=== PATIENT | male | born 1955 | race Caucasian/White ===

== ENCOUNTER 2017-03-10 10:13 | Emergency (ER) | payer OTHER ==
[2017-03-10] MEDS ORDERED: ADENOSINE 6 MG/2 ML VIAL ONE (10:17)
[2017-03-10 10:22] VITALS: RESP 16
[2017-03-10] MEDS ORDERED: NS 1,000 ML IV ONE ×2 (10:23→10:29)
[2017-03-10] MEDS ORDERED: ADENOSINE 6 MG/2 ML VIAL IVP ONE (10:24)
--- NOTE | 2017-03-10 10:25 | CPEKG ---
Heart Rate: 157 RR Interval: 382 QRSD Interval: 86 QT Interval: 300 QTC Interval: 485 P [place]: 0 QRS [place]: -46 T Wave [place]: 45 EKG Severity - ABNORMAL ECG - EKG Impression: SUPRAVENTRICULAR TACHYCARDIA Electronically Signed By: Tima Villalpando 10-Mar-2017 10:35:51
--- NOTE | 2017-03-10 10:28 | CPEKG ---
Heart Rate: 108 RR Interval: 556 P-R Interval: 188 QRSD Interval: 90 QT Interval: 328 QTC Interval: 440 P [place]: 63 QRS [place]: -41 T Wave [place]: 53 EKG Severity - OTHERWISE NORMAL ECG - EKG Impression: SINUS TACHYCARDIA EKG Impression: LEFT AXIS DEVIATION Electronically Signed By: Tima Villalpando 10-Mar-2017 10:36:09
--- NOTE | 2017-03-10 10:32 | EDPHY ---
H & P Stated Complaint: SVT Time Seen by Provider: 03/10/17 10:13 HPI/ROS: CHIEF COMPLAINT: Palpitations, dyspnea HISTORY OF PRESENT ILLNESS: The patient presents to the ED after he developed palpitations and dyspnea while riding his bike. The patient contacted paramedics. He was noted to be in a narrow complex tachycardia with a heart rate in the 150 range. The patient did not receive pre-hospital adenosine. The patient denies prior history of the symptoms. He reports a remote history of PVCs in his 40s. Patient denies significant past medical history. He takes no medications. He denies recent surgery. He denies pleuritic chest pain. He denies asymmetric calf pain or swelling. The patient denies history of recent illness. The patient states that his symptoms of palpitations and dyspnea are mild to moderate in nature. REVIEW OF SYSTEMS: A comprehensive 10 point review of systems is otherwise negative aside from elements mentioned in the history of present illness. Source: Patient Exam Limitations: No limitations - Personal History Current Tetanus/Diphtheria Vaccine: Unsure Current Tetanus Diphtheria and Acellular Pertussis (TDAP): Unsure - Medical/Surgical History Hx Asthma: No Hx Chronic Respiratory Disease: No Hx Diabetes: No Hx Cardiac Disease: No Hx Renal Disease: No Hx Cirrhosis: No Hx Alcoholism: No Hx HIV/AIDS: No Hx Splenectomy or Spleen Trauma: No Other PMH: PVCs - Social History Smoking Status: Never smoked - Physical Exam Exam: General Appearance: Alert, no distress Eyes: Pupils equal and round no pallor or injection ENT, Mouth: Mucous membranes moist Respiratory: There are no retractions, lungs are clear to auscultation Cardiovascular: Tachycardia, rate 150 Gastrointestinal: Abdomen is soft and nontender, no masses, bowel sounds normal Neurological: A&O, normal motor function, normal sensory exam, normal cranial nerves Skin: Warm and dry, no rashes Musculoskeletal: Neck is supple nontender Extremities: symmetrical, full range of motion Constitutional: Initial Vital Signs Temperature (C) 36.9 C 03/10/17 10:17 Heart Rate 160 H 03/10/17 10:17 Respiratory Rate 16 03/10/17 10:17 Blood Pressure 87/68 L 03/10/17 10:17 O2 Sat (%) 97 03/10/17 10:17 Allergies/Adverse Reactions: Cephalosporins Allergy (Verified 12/22/10 11:54) Home Medications: Medication Instructions Recorded Aspirin [Aspirin 81mg] 81 mg PO DAILY 12/22/10 Medical Decision Making - Diagnostics EKG Interpretation: EKG#1: Complete interpretation has been separately recorded in the [facility] archive. Summary impression: SVT, rate 157, no ST segment elevation EKG #2 (post-conversion): Complete interpretation has been separately recorded in the [facility] archive. Summary impression: Sinus rhythm, rate 108, no ST elevation or depression Imaging Results: Imaging Impressions Chest X-Ray 03/10/17 10:30 Impression: Negative portable chest. Procedures: Procedure: Chemical cardioversion. Indication: dysrhythmia. Risks, benefits, alternatives discussed with the patient and consent obtained. The patient was on a continuous personal lines agent, with airway equipment at the bedside. The patient was on continuous pulse oximetry. The cardioversion was performed with 12 mg of IV adenosine. The cardioversion was successful. The patient tolerated the procedure well with no complications. The procedure was performed by myself. ED Course/Re-evaluation: The patient presents to the ED with SVT. His initial rate was approximately 160. The patient was noted to be mildly hypotensive upon arrival with a blood pressure of 86/60. The patient did received 12 mg of IV adenosine which converted him to a sinus rhythm with a rate of 108. No ischemic changes are noted on his pre or post conversion EKG. The patient had marked improvement of his blood pressure following chemical cardioversion. The patient was kept in the emergency department for an hour and half without evidence of recurrent arrhythmia. He is up and ambulatory with no complaints of chest pain or shortness of breath. The patient will be advised to follow up with our on-call frozen meat cutter for further evaluation. He is instructed to return to the ED for recurrent arrhythmia, chest pain, difficulty breathing or other concerns. Differential Diagnosis: Differential diagnosis considered includes SVT, atrial fibrillation, atrial flutter, ventricular tachycardia, metabolic abnormality, dehydration Critical Care Time: Critical care time exclusive of procedures and exclusive of the PA's time was 30 minutes, performed by myself, Tima Villalpando MD. The patient presents to the ED with tachycardia and hypotension. The patient required emergent chemical cardioversion of his SVT. The patient was observed closely in the emergency department and received IV fluid rehydration. - Data Points Laboratory Results: Laboratory Results 03/10/17 10:24 03/10/17 10:24 03/10/17 03/10/17 10:24 10:24 WBC 6.01 10^3/uL 10^3/uL (3.80-9.50) RBC 4.62 10^6/uL 10^6/uL (4.40-6.38) Hgb 14.2 g/dL g/dL (13.7-17.5) Hct 41.1 % % (40.0-51.0) MCV 89.0 fL fL (81.5-99.8) MCH 30.7 pg pg (27.9-34.1) MCHC 34.5 g/dL g/dL (32.4-36.7) RDW 12.5 % % (11.5-15.2) Plt Count 241 10^3/uL 10^3/uL (150-400) MPV 10.3 fL fL (8.7-11.7) Neut % (Auto) 65.9 % % (39.3-74.2) Lymph % (Auto) 23.5 % % (15.0-45.0) [place] % (Auto) 8.5 % % (4.5-13.0) Eos % (Auto) 1.0 % % (0.6-7.6) Baso % (Auto) 0.8 % % (0.3-1.7) Nucleat RBC Rel Count 0.0 % % (0.0-0.2) Absolute Neuts (auto) 3.96 10^3/uL 10^3/uL (1.70-6.50) Absolute Lymphs (auto) 1.41 10^3/uL 10^3/uL (1.00-3.00) Absolute Monos (auto) 0.51 10^3/uL 10^3/uL (0.30-0.80) Absolute Eos (auto) 0.06 10^3/uL 10^3/uL (0.03-0.40) Absolute Basos (auto) 0.05 10^3/uL 10^3/uL (0.02-0.10) Absolute Nucleated RBC 0.00 10^3/uL 10^3/uL (0-0.01) Immature Gran % 0.3 % % (0.0-1.1) Immature Gran # 0.02 10^3/uL 10^3/uL (0.00-0.10) Sodium 140 mEq/L mEq/L (134-144) Potassium 3.8 mEq/L mEq/L (3.5-5.2) Chloride 109 mEq/L mEq/L (97-110) Carbon Dioxide 19 mEq/l L mEq/l (22-31) Anion Gap 12 mEq/L mEq/L (8-16) BUN 11 mg/dL mg/dL (7-23) Creatinine 1.0 mg/dL mg/dL (0.7-1.3) Estimated GFR > 60 Glucose 125 mg/dL H mg/dL (70-100) Calcium 8.8 mg/dL mg/dL (8.5-10.4) Magnesium 1.9 mg/dL mg/dL (1.6-2.3) Troponin I < 0.012 ng/mL ng/mL (0-0.034) Medications Given: Discontinued Medications Adenosine (Adenosine) 12 mg IVP EDNOW ONE Stop: 03/10/17 10:25 Last Admin: 03/10/17 10:25 Dose: 12 mg Sodium Chloride (Ns) 1,000 mls @ 0 mls/hr IV ONCE ONE PRN Reason: Wide Open Stop: 03/10/17 10:24 Last Admin: 03/10/17 10:25 Dose: 1,000 mls Sodium Chloride (Ns) 1,000 mls @ 0 mls/hr IV ONCE ONE; Wide Open PRN Reason: Protocol Stop: 03/10/17 10:30 Last Admin: 03/10/17 10:33 Dose: 1,000 mls Departure - Departure Disposition: Home, Routine, Self-Care Clinical Impression: Supraventricular tachycardia Condition: Good Instructions: Supraventricular Tachycardia (ED) Additional Instructions: 1. Please return to the ED for any recurrent palpitations, chest pain, shortness of breath or other concerns. 2. Please schedule a follow-up appointment with Dr. Castellanos from Cardiology for further evaluation of your newly diagnosed supraventricular tachycardia. Referrals: Keven Castellanos MD [Medical Doctor] - As per Instructions
[2017-03-10 10:35] LABS: % IMMATURE GRANULYOCYTES 0.3 % (0.0-1.1); ABSOLUTE IMMATURE GRANULOCYTES 0.02 10^3/uL (0.00-0.10); ADD DIFF? NO; ADD MORPH? NO; ADD SCAN? NO; ATYPICAL LYMPHOCYTE FLAG 10 (0-99); FRAGMENT RBC FLAG 0 (0-99); HEMATOCRIT 41.1 % (40.0-51.0); HEMOGLOBIN 14.2 g/dL (13.7-17.5); LEFT SHIFT FLG 0 (0-99); LIPEMIA HEMOLYSIS FLAG 90 (0-99); MEAN CELL HEMOGLOBIN 30.7 pg (27.9-34.1); MEAN CELL HEMOGLOBIN CONCENTR. 34.5 g/dL (32.4-36.7); MEAN PLATELET VOLUME 10.3 fL (8.7-11.7); PLATELET CLUMPS FLAG 0 (0-99); PLATELET COUNT 241 10^3/uL (150-400); RED BLOOD CELL COUNT 4.62 10^6/uL (4.40-6.38); RED CELL DISTRIBUTION WIDTH 12.5 % (11.5-15.2)
[2017-03-10 11:01] LABS: ANION GAP 12 mEq/L (8-16); CALCIUM 8.8 mg/dL (8.5-10.4); CARBON DIOXIDE 19 mEq/l (22-31); CHLORIDE 109 mEq/L (97-110); GLOMERULAR FILTRATION RATE > 60; GLUCOSE 125 mg/dL (70-100); MAGNESIUM 1.9 mg/dL (1.6-2.3); POTASSIUM 3.8 mEq/L (3.5-5.2); SODIUM 140 mEq/L (134-144)
[2017-03-10 11:13] LABS: TROPONIN I < 0.012 ng/mL (0-0.034)
[2017-03-10 12:08] VITALS: BP 108/72; PULSE 91
[2017-03-10 12:09] VITALS: TEMP 97.9; O2SAT 94
== END 2017-03-10 12:14 | disposition home or self-care (01) ==
LOC: EDUNIT#
DX: I47.1 Supraventricular tachycardia (principal)
CPT/HCPCS: 96374; J0153

== ENCOUNTER 2017-03-14 19:36 | Observation (INO) | payer OTHER ==
--- NOTE | 2017-03-14 19:51 | CPEKG ---
Heart Rate: 77 RR Interval: 779 P-R Interval: 172 QRSD Interval: 84 QT Interval: 388 QTC Interval: 440 P [place]: 54 QRS [place]: -37 T Wave [place]: 31 EKG Severity - OTHERWISE NORMAL ECG - EKG Impression: SINUS RHYTHM EKG Impression: LEFT AXIS DEVIATION Electronically Signed By: Dev Frederick 14-Mar-2017 20:11:18
[2017-03-14] MEDS ORDERED: ASPIRIN 81 MG CHEWABLE TAB PO ONE (19:54)
[2017-03-14] MEDS ORDERED: NITROGLYCERIN 0.4 MG BTL SL PRN ×2 (19:54→21:10)
[2017-03-14 20:02] LABS: % IMMATURE GRANULYOCYTES 0.3 % (0.0-1.1); ABSOLUTE IMMATURE GRANULOCYTES 0.02 10^3/uL (0.00-0.10); ADD DIFF? NO; ADD MORPH? NO; ADD SCAN? NO; ATYPICAL LYMPHOCYTE FLAG 0 (0-99); FRAGMENT RBC FLAG 0 (0-99); HEMATOCRIT 43.5 % (40.0-51.0); LEFT SHIFT FLG 0 (0-99); LIPEMIA HEMOLYSIS FLAG 90 (0-99); MEAN CELL HEMOGLOBIN 30.7 pg (27.9-34.1); MEAN CELL HEMOGLOBIN CONCENTR. 34.5 g/dL (32.4-36.7); MEAN CELL VOLUME 89.1 fL (81.5-99.8); MEAN PLATELET VOLUME 10.3 fL (8.7-11.7); PLATELET CLUMPS FLAG 10 (0-99); PLATELET COUNT 239 10^3/uL (150-400); RED BLOOD CELL COUNT 4.88 10^6/uL (4.40-6.38); RED CELL DISTRIBUTION WIDTH 12.5 % (11.5-15.2)
--- NOTE | 2017-03-14 20:08 | EDPHY ---
H & P Time Seen by Provider: 03/14/17 19:39 HPI/ROS: CHIEF COMPLAINT: Chest tightness HISTORY OF PRESENT ILLNESS: Patient was seen in March 10 for SVT. He has a remote history of PVCs. He was making dinner tonight around 715 or 731 he noted central chest tightness with a little bit of shortness of breath. Did not radiate. Not associated with cough or fever or leg swelling. He felt dizzy and clammy and symptoms persist in the emergency department. No actual syncope. REVIEW OF SYSTEMS: Eye: no change in vision ENT: no sore throat Cardiac: HPI Pulmonary: HPI Abdomen: no vomiting, diarrhea, abdominal pain Musculoskeletal: no back pain Skin: no rash Neuro: no headache Constitutional: no fever : no urinary symptoms A comprehensive 10 point review of systems is otherwise negative aside from elements mentioned in the history of present illness. PAST MEDICAL HISTORY: SVT and PVCs Social history: Negative for tobacco or cocaine. No recent travel or immobilization. Family history: Negative for coronary disease at his age, negative for venous thromboembolism. General Appearance: Alert and conversant, cooperative. Eyes: No scleral icterus. ENT, Mouth: Normal mucous membranes. Respiratory: Normal respiratory effort, breath sounds equal, lungs are clear to auscultation. Cardiovascular: Regular rate and rhythm. No murmur. Gastrointestinal: Abdomen is soft and non tender. Neurological: Alert and oriented x3. Normally conversant. Face symmetric, normal movement and sensation in all extremities. Skin: Warm and dry, no rashes. Not diaphoretic. Musculoskeletal: No peripheral edema and no joint swelling. Psychiatric: Not agitated. Emergency Department course/MDM: Oral aspirin 324 and nitroglycerin sublingual x3. Chest x-ray and EKG. Labs to include troponin and D-dimer. 2015: Sublingual nitroglycerin and chest tightness went from 4-10 to 1/10. 2044: Results discussed with the patient. He had recurrence of his chest discomfort walking to the bathroom but this is now gone at rest. Recommendation for admission and serial troponins, stress testing versus catheterization depending on results. Discussed with Dr. Gerard hospitalist will see the patient in the ED. Pretest probability for pulmonary embolism low, negative D-dimer. Smoking Status: Never smoked Constitutional: Initial Vital Signs Temperature (C) 36.8 C 03/14/17 19:41 Heart Rate 82 03/14/17 19:41 Respiratory Rate 14 03/14/17 19:41 Blood Pressure 125/86 H 03/14/17 19:41 O2 Sat (%) 96 03/14/17 19:41 O2 Delivery Mode Room Air Allergies/Adverse Reactions: Cephalosporins Allergy (Verified 03/14/17 20:23) hive Home Medications: Medication Instructions Recorded NK [No Known Home Meds] 03/14/17 Medical Decision Making - Diagnostics EKG Interpretation: 12-lead EKG interpreted by me; official reading is in trace master. My interpretation is sinus rhythm with left axis rate 77, no acute ST changes. Imaging Results: Imaging Impressions Chest X-Ray 03/14/17 19:54 Impression: Normal chest. Differential Diagnosis: Differential diagnosis considered for chest pain including but not limited to myocardial ischemia, aortic dissection, pericarditis, pulmonary embolus, chest wall pain, pleural inflammation and pulmonary infectious causes. Consult/Admit Bed Type: [place] [id number] - Data Points Laboratory Results: Laboratory Results 03/14/17 19:55 03/14/17 19:55 03/14/17 03/14/17 03/14/17 19:55 19:55 19:55 WBC RBC Hgb Hct MCV MCH MCHC RDW Plt Count MPV Neut % (Auto) Lymph % (Auto) [place] % (Auto) Eos % (Auto) Baso % (Auto) Nucleat RBC Rel Count Absolute Neuts (auto) Absolute Lymphs (auto) Absolute Monos (auto) Absolute Eos (auto) Absolute Basos (auto) Absolute Nucleated RBC Immature Gran % Immature Gran # PT 14.7 SEC SEC (12.0-15.0) INR 1.15 (0.83-1.16) APTT 29.1 SEC SEC (23.0-38.0) D-Dimer Sodium 138 mEq/L mEq/L (134-144) Potassium 4.1 mEq/L mEq/L (3.5-5.2) Chloride 106 mEq/L mEq/L (97-110) Carbon Dioxide 19 mEq/l L mEq/l (22-31) Anion Gap 13 mEq/L mEq/L (8-16) BUN 13 mg/dL mg/dL (7-23) Creatinine 0.8 mg/dL mg/dL (0.7-1.3) Estimated GFR > 60 Glucose 81 mg/dL mg/dL (70-100) Calcium 9.5 mg/dL mg/dL (8.5-10.4) Troponin I < 0.012 ng/mL ng/mL (0-0.034) Triglycerides 171 mg/dL H mg/dL (40-150) Cholesterol 159 mg/dL mg/dL (140-220) Cholesterol Risk Factr 1.0 (0.2-1.0) LDL Cholesterol, Calc 93 mg/dL mg/dL (80-100) LDL Risk Factor 1.0 (0.2-1.0) VLDL Cholesterol 34 mg/dL H mg/dL (8-25) Non-HDL Cholesterol 127 mg/dL mg/dL (90-129) HDL Cholesterol 32 mg/dL L mg/dL (40-65) LDL/HDL Ratio 2.91 RATIO RATIO (1.00-3.64) Cholesterol/HDL Ratio 4.97 RATIO RATIO (1.00-4.97) 03/14/17 03/14/17 19:55 19:55 WBC 6.71 10^3/uL 10^3/uL (3.80-9.50) RBC 4.88 10^6/uL 10^6/uL (4.40-6.38) Hgb 15.0 g/dL g/dL (13.7-17.5) Hct 43.5 % % (40.0-51.0) MCV 89.1 fL fL (81.5-99.8) MCH 30.7 pg pg (27.9-34.1) MCHC 34.5 g/dL g/dL (32.4-36.7) RDW 12.5 % % (11.5-15.2) Plt Count 239 10^3/uL 10^3/uL (150-400) MPV 10.3 fL fL (8.7-11.7) Neut % (Auto) 54.1 % % (39.3-74.2) Lymph % (Auto) 35.0 % % (15.0-45.0) [place] % (Auto) 8.3 % % (4.5-13.0) Eos % (Auto) 1.6 % % (0.6-7.6) Baso % (Auto) 0.7 % % (0.3-1.7) Nucleat RBC Rel Count 0.0 % % (0.0-0.2) Absolute Neuts (auto) 3.62 10^3/uL 10^3/uL (1.70-6.50) Absolute Lymphs (auto) 2.35 10^3/uL 10^3/uL (1.00-3.00) Absolute Monos (auto) 0.56 10^3/uL 10^3/uL (0.30-0.80) Absolute Eos (auto) 0.11 10^3/uL 10^3/uL (0.03-0.40) Absolute Basos (auto) 0.05 10^3/uL 10^3/uL (0.02-0.10) Absolute Nucleated RBC 0.00 10^3/uL 10^3/uL (0-0.01) Immature Gran % 0.3 % % (0.0-1.1) Immature Gran # 0.02 10^3/uL 10^3/uL (0.00-0.10) PT INR APTT D-Dimer < 0.27 ug/mLFEU ug/mLFEU (0.00-0.50) Sodium Potassium Chloride Carbon Dioxide Anion Gap BUN Creatinine Estimated GFR Glucose Calcium Troponin I Triglycerides Cholesterol Cholesterol Risk Factr LDL Cholesterol, Calc LDL Risk Factor VLDL Cholesterol Non-HDL Cholesterol HDL Cholesterol LDL/HDL Ratio Cholesterol/HDL Ratio Medications Given: Discontinued Medications Aspirin (Aspirin) 324 mg PO EDNOW ONE Stop: 03/14/17 19:55 Last Admin: 03/14/17 20:05 Dose: 324 mg Sodium Chloride (Ns) 500 mls @ 1,000 mls/hr IV ONCE ONE PRN Reason: Protocol Stop: 03/14/17 20:41 Last Admin: 03/14/17 20:10 Dose: 500 mls Nitroglycerin (Nitrostat) 0.4 mg SL Q5M PRN PRN Reason: Chest Pain Stop: 03/14/17 20:05 Last Admin: 03/14/17 20:05 Dose: 0.4 mg Departure - Departure Disposition: [facility] Clinical Impression: Chest pain Qualifiers: Chest pain type: unspecified Qualified Code(s): R07.9 - Chest pain, unspecified Condition: Good
[2017-03-14] MEDS ORDERED: NS 500 ML IV ONE (20:12)
[2017-03-14 20:14] LABS: ANION GAP 13 mEq/L (8-16); CALCIUM 9.5 mg/dL (8.5-10.4); CARBON DIOXIDE 19 mEq/l (22-31); CHLORIDE 106 mEq/L (97-110); CREATININE 0.8 mg/dL (0.7-1.3); GLOMERULAR FILTRATION RATE > 60; GLUCOSE 81 mg/dL (70-100); POTASSIUM 4.1 mEq/L (3.5-5.2); SODIUM 138 mEq/L (134-144)
[2017-03-14 20:25] LABS: TROPONIN I < 0.012 ng/mL (0-0.034)
[2017-03-14] MEDS ORDERED: ACETAMINOPHEN 325 MG TAB PO PRN (21:10)
[2017-03-14] MEDS ORDERED: ZOLPIDEM TARTRATE 5 MG TAB PO PRN (21:10)
[2017-03-14] MEDS ORDERED: ONDANSETRON 4 MG/2 ML VIAL IVP PRN (21:10)
[2017-03-14 21:24] LABS: INR 1.15 (0.83-1.16); PROTIME(PATIENT) 14.7 SEC (12.0-15.0)
[2017-03-14 21:25] LABS: APTT 29.1 SEC (23.0-38.0)
[2017-03-14 21:27] LABS: CHOLESTEROL 159 mg/dL (140-220); CHOLESTEROL/HDL RATIO 4.97 RATIO (1.00-4.97); HIGH DENSITY LIPOPROTEIN 32 mg/dL (40-65); LDL/HDL RATIO 2.91 RATIO (1.00-3.64); LOW DENSITY LIPOPROTEIN 93 mg/dL (80-100); NON-HIGH DENSITY LIPOPROTEIN 127 mg/dL (90-129); TRIGLYCERIDE 171 mg/dL (40-150); VERY LOW DENSITY LIPOPROTEINS 34 mg/dL (8-25)
--- NOTE | 2017-03-14 21:39 | GHP ---
[f rep st] HISTORY AND PHYSICAL DATE OF ADMISSION: 03/14/2017 CHIEF COMPLAINT: Chest tightness. HISTORY OF PRESENT ILLNESS: This is a 61-year-old male, with a history of PVCs, who presented to [facility] emergency department with chest tightness. The tightness began at 7:15 while making dinner. It w as described as a tightness over the center of his chest, graded 4/10, that lasted about 20 minutes, until he was seen in the emergency department, and was given nitroglycerin and aspirin. The pain d id return after his nitroglycerin when he went to walk to the bathroom, but he is now chest pain-sayra e. The patient does typically exercise regularly. Last , he was diagnosed with SVT after going on a bike ride. He was seen in the emergency department, where he was treated with adenosine, and ultimately discharged. He is supposed to follow up with a [employer] washing machine repairer, but has not yet seen them. PAST MEDICAL HISTORY: PVCs. PAST SURGICAL HISTORY: Cholecystectomy. HOME MEDICATIONS: None. ALLERGIES: Cephalosporins. SOCIAL HISTORY: He denies any alcohol, tobacco, or illicit drug use. FAMILY HISTORY: Significant for congestive heart failure in both of his parents. REVIEW OF SYSTEMS: A comprehensive 10-point review of systems was done and is negative, except for as mentioned in the HPI. PHYSICAL EXAM: VITAL SIGNS: Blood pressure 129/89, pulse of 70, respiratory rate 16, O2 saturation 94% on room air, temperature afebrile. GENERAL: No acute distress. HEAD: Normocephalic, atrauma tic. EYES: PERRLA. Sclerae anicteric. MOUTH: Moist mucous membranes. NECK: Supple. No lympha denopathy. CARDIOVASCULAR: S1, S2. No murmurs, rubs, clicks, gallops or JVD. No lower extremity edema. No carotid bruits. PULMONARY: Lungs are clear. No wheezes, rales, or rhonchi. ABDOMEN: Soft, nontender, nondistended. No guarding or rebound tenderness. Normoactive bowel sounds. EXTRE MITIES: No clubbing or cyanosis. NEUROLOGIC: Cranial nerves 2-12 grossly intact. No focal motor sensory deficits. SKIN: Clear. No rashes. DIAGNOSTICS: Chest x-ray, which I reviewed, was read as negative. EKG, which I visualized and personally interpreted, shows sinus rhythm, rate 77 beats per minute, wi th no ST depression or elevation. There is no Q-waves. There is some left axis deviation. Sodium 138, potassium 4.1, chloride 106, BUN 13, creatinine 0.8, glucose 81. Troponin less than 0.0 12. D-dimer was negative. WBC 6.7, hemoglobin 15, hematocrit 43.5, platelets 239. ASSESSMENT AND PLAN: This is a 61-year-old male, with no significant past cardiac history, other th an supraventricular tachycardia, which occurred last week while riding his bike, presenting with raegan st tightness while making dinner, concerning for acute coronary syndrome, given his recent bout of s upraventricular tachycardia with exercise. PLAN: I discussed the case with Dr. Catarino Mata from Cardiology, who recommended that we place the patient n.p.o. We will cycle his troponins. He will likely go for cardiac catheterization in the m orning. The patient will be admitted to observation status. /[id number]/MODL
[2017-03-15] MEDS ORDERED: ASPIRIN EC 325 MG TAB PO ONE ×2 (09:44→10:07)
[2017-03-15] MEDS ORDERED: ACETAMINOPHEN 325 MG TAB PO PRN (09:44)
[2017-03-15] MEDS ORDERED: DIAZEPAM 5 MG TAB PO ONE (09:44)
[2017-03-15] MEDS ORDERED: TEMAZEPAM 15 MG CAP PO PRN (09:44)
[2017-03-15] MEDS ORDERED: diphenhydrAMINE 25 MG CAP PO ONE ×2 (09:44→10:07)
[2017-03-15] MEDS ORDERED: DIAZEPAM 5 MG TAB ONE (10:07)
[2017-03-15] MEDS ORDERED: FAMOTIDINE 20 MG TAB ONE (10:07)
[2017-03-15] MEDS ORDERED: LIDOCAINE 1% 300 MG/30 ML SDV ONE ×2 (10:27→11:28)
[2017-03-15] MEDS ORDERED: HEPARIN 10,000 UNIT/10 ML MDV ONE (10:28)
[2017-03-15] MEDS ORDERED: IOPAMIDOL (ISOVUE-370) 150 ML BTL IV ONE ×4 (10:28→12:23)
[2017-03-15] MEDS ORDERED: MIDAZOLAM 2 MG/2 ML VIAL ONE ×4 (10:28→12:05)
[2017-03-15] MEDS ORDERED: VERAPAMIL 5 MG/2 ML VIAL ONE (10:28)
[2017-03-15] MEDS ORDERED: fentaNYL 100 MCG/2 ML INJ ONE ×3 (10:28→12:05)
[2017-03-15] MEDS ORDERED: NITROGLYCERIN 1,500 MCG/15 ML VIAL MISC ONE (11:23)
[2017-03-15] MEDS ORDERED: CLOPIDOGREL BISULFATE 75 MG TAB PO ONE (12:45)
[2017-03-15] MEDS ORDERED: ATROPINE SULFATE 1 MG/10 ML SYR IVP PRN (12:45)
[2017-03-15] MEDS ORDERED: FUROSEMIDE 20 MG/2 ML VIAL IVP ONE ×2 (12:47→15:45)
[2017-03-15] MEDS ORDERED: CLOPIDOGREL BISULFATE 75 MG TAB ONE (12:52)
--- NOTE | 2017-03-15 13:32 | PDDXCAT ---
Diagnostic Cath Note - . 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 Plan: PCI of the right coronary urgently. Intervention: After reviewing diagnostic angiograms was elected to proceed with urgent PCI of the right coronary artery. Patient was anticoagulated with heparin. A single attempt was made to engage the right coronary artery from the right radial artery using an AL1 guiding catheter. Due to severe tortuosity and unusual angulation it was elected to stop using the right radial artery approach. Catheter was withdrawn. 6 [place] sheath was used in the right femoral artery. Multiple attempts at engaging the anomalous right coronary were made with a variety of catheters including an AL1, left coronary bypass catheter, multipurpose catheter, AR1, AL2. Due to difficulty torquing the catheter we upsized the groin sheath to a 7 [place] long sheath. Using a JL 3.5 catheter we were finally able to angulate into the anomalous right coronary. Ultimately a 7 [place] JL3 catheter was used to engage the anomalous right coronary artery. Patient's ACT was confirmed. Using a 0.014 helicopter pilot instructor 50 wire the RCA stenosis was crossed and the wire placed in the distal vessel with an [id number] 1.25 balloon. The lesion was pre-dilated. A 2 mm x 16 balloon was then used to pre dilate the lesion. Repeat angiogram showed MIGUELINA grade 3 flow. It was elected to proceed with stenting a 2.5 x 38 mm synergy stent was placed across the stenosis. Was deployed in a single inflation up to 18 atmospheres. Final orthogonal angiograms revealed MIGUELINA grade 3 flow. Conclusions 1. 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 2. Acute coronary syndrome with occlusion of the mid RCA status post successful PCI and stenting. Plan. The patient be continued on dual antiplatelet therapy for 1 year. Will readdress statin therapy for hyperlipidemia. Considerations for Pravachol with history of elevation in liver function tests with standard therapy. Will plan for echocardiogram for assessment of LV function. Patient did receive significant amount of contrast. He will be aggressively hydrated with normal saline. Follow-up creatinine tomorrow. Patient Problems: Problems Problem Status Onset Acute coronary insufficiency Acute Status post placement of stent in right coronary artery Acute Anomalous right coronary artery Acute Coronary artery disease Acute Chest pain Acute
--- NOTE | 2017-03-15 13:36 | PDCARCONS ---
Cardiology Consult Reason for Consult: Chest pain radiating to left arm Chief Complaint: Chest pain radiating to left arm Requesting Physician: Rajani History of Present Illness: 61-year-old male with no prior cardiovascular history has had 2 admissions to the hospital in the last week. 1 week ago while riding his bike a [place] he developed the acute onset of a fluttering in his chest. He did not feel well. He activated 911. He was brought to the emergency department where he is found to be in SVT. He received adenosine with conversion to sinus rhythm. He did well until yesterday while cooking he developed the acute onset of left substernal chest pressure. It radiated into his left arm. It was associated with clamminess and no nausea. The patient called 911 was brought to the emergency department on arrival he was given a single nitroglycerin with relief. In the middle of the night he had recurrence of symptoms with chest pressure radiating into his arm. He was treated with oxygen and again had relief. This morning is having ongoing 1 to 2/10 discomfort with radiation. He denies PND orthopnea. He has had no recurrent palpitations or syncope. Patient has no prior history of SVT until this past week. He has no history of valvular heart disease. Cardiac Risk includes hyperlipidemia. He has been intolerant of statin therapy due to elevation of liver function test. He has no history of diabetes, hypertension. He has no family history of early heart disease. History Information - Allergies/Home Medication List Allergies/Adverse Reactions: Cephalosporins Allergy (Verified 03/14/17 20:23) hive Home Medications: NK [No Known Home Meds] 03/14/17 [Last Taken Unknown] I have personally reviewed and updated: family history, medical history, social history, surgical history - Past Medical History SVT - Surgical History Reports: cholecystectomy - Family History Positive for: non-pertinent - Social History Smoking Status: Never smoked Cardiac History - Cardiac History Cardiac Risk Factors: lipidemia Timing/Duration: Days Severity Scale: 4 Location: substernal Activities at Onset: rest Modifying Factors: improves with: nitroglycerin, oxygen Associated Symptoms: diaphoresis MIGUELINA Risk Evaluation age greater or equal to 65: no greater or equal to 3 CAD risk factors: no known CAD(stenosis greater or eqaul to 50%): no ASA use in past 7 days: yes severe angina(greater or equal to 2 episodes in 24hrs): yes EKG ST changes greater or equal to 0.5mm: no positive cardiac marker: no Total Score: 2 MIGUELINA Score: 8.3% risk Physical Exam Temp Pulse Resp BP Pulse Ox 36.6 C 55 L 12 109/54 L 97 03/15/17 07:37 03/15/17 07:37 03/15/17 07:37 03/15/17 07:37 03/15/17 07:37 O2 (L/minute) 2 Constitutional: no apparent distress Eyes: No anicteric sclera Ears, Nose, Mouth, Throat: moist mucous membranes Cardiovascular: regular rate and rhythym, no murmur, rub, or gallop, No systolic murmur, No JVD Peripheral Pulses: 1+: carotid (R), carotid (L), femoral (R), femoral (L), dorsalis-pedis (R), dorsalis-pedis (L) Respiratory: no respiratory distress, no rales or rhonchi Gastrointestinal: normoactive bowel sounds, soft, non-tender abdomen, no palpable masses Genitourinary: no bladder fullness Skin: warm, normal color, No mottled Musculoskeletal: full muscle strength, no muscle tenderness Neurologic: AAOx3, sensation intact bilaterally, No weakness Psychiatric: interacting appropriately, anxious Lymph, Heme, Immunologic: no cervical LAD, no supraclavicular LAD, No lymphadenopathy Lab and Imaging 03/14/17 19:55 03/14/17 19:55 WBC 6.71 10^3/uL (3.80-9.50) 03/14/17 19:55 RBC 4.88 10^6/uL (4.40-6.38) 03/14/17 19:55 Hgb 15.0 g/dL (13.7-17.5) 03/14/17 19:55 Hct 43.5 % (40.0-51.0) 03/14/17 19:55 MCV 89.1 fL (81.5-99.8) 03/14/17 19:55 MCH 30.7 pg (27.9-34.1) 03/14/17 19:55 MCHC 34.5 g/dL (32.4-36.7) 03/14/17 19:55 RDW 12.5 % (11.5-15.2) 03/14/17 19:55 Plt Count 239 10^3/uL (150-400) 03/14/17 19:55 MPV 10.3 fL (8.7-11.7) 03/14/17 19:55 Neut % (Auto) 54.1 % (39.3-74.2) 03/14/17 19:55 Lymph % (Auto) 35.0 % (15.0-45.0) 03/14/17 19:55 [place] % (Auto) 8.3 % (4.5-13.0) 03/14/17 19:55 Eos % (Auto) 1.6 % (0.6-7.6) 03/14/17 19:55 Baso % (Auto) 0.7 % (0.3-1.7) 03/14/17 19:55 Nucleat RBC Rel Count 0.0 % (0.0-0.2) 03/14/17 19:55 Absolute Neuts (auto) 3.62 10^3/uL (1.70-6.50) 03/14/17 19:55 Absolute Lymphs (auto) 2.35 10^3/uL (1.00-3.00) 03/14/17 19:55 Absolute Monos (auto) 0.56 10^3/uL (0.30-0.80) 03/14/17 19:55 Absolute Eos (auto) 0.11 10^3/uL (0.03-0.40) 03/14/17 19:55 Absolute Basos (auto) 0.05 10^3/uL (0.02-0.10) 03/14/17 19:55 Absolute Nucleated RBC 0.00 10^3/uL (0-0.01) 03/14/17 19:55 Immature Gran % 0.3 % (0.0-1.1) 03/14/17 19:55 Immature Gran # 0.02 10^3/uL (0.00-0.10) 03/14/17 19:55 PT 14.7 SEC (12.0-15.0) 03/14/17 19:55 INR 1.15 (0.83-1.16) 03/14/17 19:55 APTT 29.1 SEC (23.0-38.0) 03/14/17 19:55 D-Dimer < 0.27 ug/mLFEU (0.00-0.50) 03/14/17 19:55 Sodium 138 mEq/L (134-144) 03/14/17 19:55 Potassium 4.1 mEq/L (3.5-5.2) 03/14/17 19:55 Chloride 106 mEq/L (97-110) 03/14/17 19:55 Carbon Dioxide 19 mEq/l (22-31) L 03/14/17 19:55 Anion Gap 13 mEq/L (8-16) 03/14/17 19:55 BUN 13 mg/dL (7-23) 03/14/17 19:55 Creatinine 0.8 mg/dL (0.7-1.3) 03/14/17 19:55 Estimated GFR > 60 03/14/17 19:55 Glucose 81 mg/dL (70-100) 03/14/17 19:55 Calcium 9.5 mg/dL (8.5-10.4) 03/14/17 19:55 Troponin I < 0.012 ng/mL (0-0.034) 03/15/17 04:24 Triglycerides 171 mg/dL (40-150) H 03/14/17 19:55 Cholesterol 159 mg/dL (140-220) 03/14/17 19:55 Cholesterol Risk Factr 1.0 (0.2-1.0) 03/14/17 19:55 LDL Cholesterol, Calc 93 mg/dL (80-100) 03/14/17 19:55 LDL Risk Factor 1.0 (0.2-1.0) 03/14/17 19:55 VLDL Cholesterol 34 mg/dL (8-25) H 03/14/17 19:55 Non-HDL Cholesterol 127 mg/dL (90-129) 03/14/17 19:55 HDL Cholesterol 32 mg/dL (40-65) L 03/14/17 19:55 LDL/HDL Ratio 2.91 RATIO (1.00-3.64) 03/14/17 19:55 Cholesterol/HDL Ratio 4.97 RATIO (1.00-4.97) 03/14/17 19:55 Visualized and Interpreted Chest x-ray results: Yes Visualized and Interpreted EKG results: Yes A/P Assessment: 61-year-old male with 8.3% risk of acute coronary syndrome based on MIGUELINA score. He has risk of hyperlipidemia. He has new onset SVT 1 week ago now with chest pressure radiating to the left arm. ITs clinical history is somewhat concerning. Relief with nitroglycerin oxygen somewhat concerning. Cardiac enzymes are negative and EKG is unremarkable at this point. Strongly recommend risk stratification. Discussed options including coronary angiogram versus stress testing. Based on resting pain, recent SVT would recommend definitive diagnosis by angiography. Risks and benefits of this approach were discussed with the patient. Will proceed Plan: Diagnostic coronary angiogram. Optimization of cardiac risk.
--- NOTE | 2017-03-15 14:53 | CPEKG ---
Heart Rate: 56 RR Interval: 1071 P-R Interval: 192 QRSD Interval: 90 QT Interval: 436 QTC Interval: 421 P [place]: 57 QRS [place]: -28 T Wave [place]: 31 EKG Severity - OTHERWISE NORMAL ECG - EKG Impression: SINUS RHYTHM EKG Impression: BORDERLINE LEFT AXIS DEVIATION Electronically Signed By: Trent Gibbs 15-Mar-2017 15:51:22
--- NOTE | 2017-03-15 15:03 | HOSPPROG ---
Hospitalist Progress Note Assessment/Plan: 61 yo M w anginal sx, rca stent cad: s/p rca stent asa/plavix started h/o statin intolerance [id number] SVT: no sx follow on telemetry dye load: IVF overnight hyperlipidemia: trial of pravachol dispo: inpt Subjective: case d/w dr turpin. s/p RCA stent. post procedure ekg w no ischemic changes (interp by me) Objective: Vital Signs Temp Pulse Resp BP Pulse Ox 36.6 C 55 L 12 109/54 L 97 03/15/17 07:37 03/15/17 07:37 03/15/17 07:37 03/15/17 07:37 03/15/17 07:37 03/14/17 03/15/17 03/16/17 05:59 05:59 05:59 Intake Total 700 Balance 700 PT 14.7 SEC (12.0-15.0) 03/14/17 19:55 INR 1.15 (0.83-1.16) 03/14/17 19:55 - Physical Exam Constitutional: no apparent distress, appears nourished Eyes: PERRL, anicteric sclera Ears, Nose, Mouth, Throat: moist mucous membranes, hearing normal Cardiovascular: regular rate and rhythym, no murmur, rub, or gallop Respiratory: no respiratory distress Gastrointestinal: normoactive bowel sounds, soft, non-tender abdomen Genitourinary: no bladder fullness, No wright in urethra Skin: warm, normal color Musculoskeletal: full muscle strength ICD10 Worksheet Patient Problems: Problems Problem Status Onset Acute coronary insufficiency Acute Anomalous right coronary artery Acute Chest pain Acute Coronary artery disease Acute Status post placement of stent in right coronary artery Acute
[2017-03-15] MEDS: NS 1,000 ML IV SCH ×2 (16:16→18:13)
--- NOTE | 2017-03-15 16:47 | ECHO ---
[id number] + + [id number] : : [place] [id number] : : [phone] + + Adult Echocardiographic Report + ---+ :Name: CHRISTOPHER MARRERO CStudy Date: 03/15/2017 02:15 PM : : Hospital Admission Number: [id number] Location: [facility]: :: 1955 Gender: Male Height: 68 in : :Age: 61 yrs Race: WH Weight: 196 lb : :Reason For Study: Eval LV Fx : : BSA: 2.0 meters2 : :History: Post RCA cath : + ---+ MMode/2D Measurements \T\ Calculations IVSd: 0.80 cm LVIDd: 4.0 cm FS: 35.4 % Ao root diam: 2.9 cm LVPWd: 1.0 cm LVIDs: 2.6 cm EDV(Teich): 71.5 ml ACS: 1.7 cm ESV(Teich): 24.8 ml EF(Teich): 65.3 % Normal Measurement Values: + + :LVIDd (3.5-5.7cm) IVSd (0.6-1.1cm) LVPWd (0.6-1.1cm) Aortic Root (2.0-3.7cm)Left Atrium (1.5-4.0cm): :LV Vol(d) (76-115ml) LV Vol(s) (29-48ml) Ejec Fraction (50-65%)PV Epi (0.6- 1.2m/s) TV Epi (0.4-1.0m/s) : :MV E Epi (0.8-1.0m/s)MV A Epi (0.3-1.0m/s)LVOT Epi (0.7-1.2m/s) Asc Ao Epi ( 0.9-1.8m/s) : + + Doppler Measurements \T\ Calculations MV E max epi: Ao V2 max: LV V1 max: MR max epi: 52.8 cm/sec 114.0 cm/sec 67.1 cm/sec 462.8 cm/sec MV A max epi: Ao max PG: LV V1 max PG: MR max P.2 cm/sec 5.2 mmHg 1.8 mmHg 85.7 mmHg MV E/A: 0.91 PA V2 max: 74.7 cm/sec PA max P.2 mmHg Left Ventricle The left ventricle is normal in size. There is normal left ventricular wall thickness. The left ventricular ejection fraction is normal. There is Doppler evidence for diastolic dysfunction. Ejection Fraction = 65%. No regional wall motion abnormalities noted. Right Ventricle The right ventricle is normal in size and function. Atria The left atrial size is normal. Right atrial size is normal. Mitral Valve The mitral valve is normal in structure and function. There is no evidence of mitral valve prolapse. There is no mitral valve stenosis. There is trace to mild mitral regurgitation. Tricuspid Valve Normal tricuspid valve. No tricuspid regurgitation. Aortic Valve The aortic valve is trileaflet. There is no aortic stenosis. There is no aortic insufficiency. Pulmonic Valve The pulmonic valve is normal in structure and function. There is no pulmonic valvular regurgitation. Great Vessels The aortic root is normal size. Pericardium/Pleural There is no pericardial effusion. Conclusion A complete two-dimensional transthoracic echocardiogram was performed (2D, M-mode, Doppler and color flow Doppler). The left ventricular ejection fraction is normal. There is Doppler evidence for diastolic dysfunction. Ejection Fraction = 65%. No regional wall motion abnormalities noted. The left atrial size is normal. The mitral valve is normal in structure and function. There is trace to mild mitral regurgitation. The aortic valve is trileaflet. The pulmonic valve is normal in structure and function. There is no pericardial effusion. Final Reading Physician: Nikko Mcfadden signed on 03/15/2017 04:46 PM Ordering Physician: JESSICA ALEXANDER Performed By: Deacon Bernardo, AMELIE
[2017-03-15] MEDS: METOPROLOL TARTRATE 25 MG TAB PO SCH (22:23)
[2017-03-16 05:52] LABS: % IMMATURE GRANULYOCYTES 0.5 % (0.0-1.1); ABSOLUTE IMMATURE GRANULOCYTES 0.05 10^3/uL (0.00-0.10); ADD DIFF? NO; ADD MORPH? NO; ADD SCAN? NO; ATYPICAL LYMPHOCYTE FLAG 0 (0-99); FRAGMENT RBC FLAG 0 (0-99); HEMOGLOBIN 13.8 g/dL (13.7-17.5); LEFT SHIFT FLG 0 (0-99); LIPEMIA HEMOLYSIS FLAG 80 (0-99); MEAN CELL HEMOGLOBIN 30.5 pg (27.9-34.1); MEAN CELL HEMOGLOBIN CONCENTR. 33.7 g/dL (32.4-36.7); MEAN CELL VOLUME 90.7 fL (81.5-99.8); MEAN PLATELET VOLUME 10.9 fL (8.7-11.7); PLATELET CLUMPS FLAG 0 (0-99); PLATELET COUNT 223 10^3/uL (150-400); RED BLOOD CELL COUNT 4.52 10^6/uL (4.40-6.38); RED CELL DISTRIBUTION WIDTH 12.6 % (11.5-15.2)
[2017-03-16 06:03] LABS: ALBUMIN 3.4 g/dL (3.5-5.0); ANION GAP 10 mEq/L (8-16); ASPARTATE AMINOTRANSFERASE 18 IU/L (17-59); BILIRUBIN,TOTAL 0.9 mg/dL (0.1-1.4); CALCIUM 8.9 mg/dL (8.5-10.4); CARBON DIOXIDE 20 mEq/l (22-31); CHLORIDE 107 mEq/L (97-110); CREATININE 0.8 mg/dL (0.7-1.3); GLOMERULAR FILTRATION RATE > 60; GLUCOSE 88 mg/dL (70-100); LACTATE DEHYDROGENASE 432 IU/L (313-618); POTASSIUM 4.1 mEq/L (3.5-5.2); SODIUM 137 mEq/L (134-144)
[2017-03-16 08:26] VITALS: TEMP 97.8
[2017-03-16] MEDS ORDERED: ASPIRIN EC 325 MG TAB PO SCH (09:00)
[2017-03-16] MEDS ORDERED: CLOPIDOGREL BISULFATE 75 MG TAB PO SCH (09:00)
--- NOTE | 2017-03-16 09:15 | CPEKG ---
Heart Rate: 71 RR Interval: 845 P-R Interval: 172 QRSD Interval: 92 QT Interval: 396 QTC Interval: 431 P [place]: 68 QRS [place]: -25 T Wave [place]: 50 EKG Severity - OTHERWISE NORMAL ECG - EKG Impression: SINUS RHYTHM EKG Impression: BORDERLINE LEFT AXIS DEVIATION Electronically Signed By: Trent Gibbs 16-Mar-2017 11:58:34
[2017-03-16] MEDS: METOPROLOL TARTRATE 25 MG TAB PO SCH (11:42)
[2017-03-16 11:57] VITALS: BP 114/76; PULSE 75; RESP 18; O2SAT 97
--- NOTE | 2017-03-17 03:10 | GDS ---
[f rep st] DISCHARGE SUMMARY ADMIT DIAGNOSES: 1. Chest pain. 2. Premature ventricular contractions. DISCHARGE DIAGNOSES: 1. Coronary artery disease. 2. Stent placement to the right coronary artery. 3. Anomalous right coronary artery. 4. Cardiac arrhythmias including supraventricular tachycardia and premature ventricular contractions. COURSE OF HOSPITALIZATION: This gentleman has generally been healthy. He has noticed while biking that he developed some chest discomfort with associated mild shortness of breath. On the evening that he experienced the chest discomfort, he was making dinner and noted sudden onset of chest tightness. There was no radiation of discomfort. He did feel dizzy and clammy. He presented to the emergency room. He was given aspirin 325 mg and nitroglycerin sublingually x3 while in the emergency room. EKG showed a regular sinus rhythm with left axis and a rate of 77 on admission to the emergency department. Troponin was negative. D-dimer was negative. He was previously brought to the emergency room after experiencing chest discomfort with fluttering in his chest one week ago. He was found to be in SVT. At that time, he was given adenosine , which converted him to sinus rhythm. At that time, it was recommended that he see a [facility] sales applications engineer as he has insurance through [employer]. That was set up for in the next couple weeks. The patient was evaluated by Cardiology the following morning and due to his new onset diagnosis of SVT and his recurring chest discomfort, it was recommended to proceed to cardiac angiogram. He was found to have a subtotal stenosis of the mid RCA that was fed with collaterals left to right. His LAD, left main, and left circumflex were unobstructed, as well as the obtuse marginal branch of the circumflex. 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 This made the procedure difficult. See full cardiac cath note for details. It was elected to proceed with stenting utilizing a Synergy stent, which was accomplished with no complications. CONCLUSIONS OF CARDIAC ANGIOGRAM: 1. 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 2. Acute coronary syndrome with occlusion of the mid RCA status post successful PCI and stenting with a drug-eluting stent. Patient is to continue dual anti-platelet therapy for 1 year. He will need to be placed on statin therapy with consideration for Pravachol due to history of elevated liver function tests. Due to the significant amount of contrast utilized for this procedure, it will be necessary to hydrate aggressively. Will monitor his creatinine level closely. He was evaluated post catheterization in the [facility], where he had no complications. He then was transferred to the PCU unit where he has done well. He had a good night's sleep and has been up in the room ambulating. Dr. Nathan Riddle did visit with he and his this morning detailing his findings of the occluded RCA with collaterals and the placement of the stent. He additionally discussed the findings of an anomalous RCA off the left main. His films and results will be sent to [facility] for their records along with the cath report detailing the catheters and size needed to cath the anomalous RCA. Both he and his asked questions and felt they had a good understanding. Because he will transfer care back to [facility], we will not initiate statin therapy and allow them to start when he has his appointment with the sales applications engineer at [facility]. Recommendation with consideration for Pravachol due to his history of elevated liver tests. We will start Zetia to help with his lipid management in the interim, also recommended to have an echocardiogram for assessment of LV function when seen by his [facility] sales applications engineer. At this time, all questions have been answered with good understanding. He is stable for discharge. ALLERGIES: He is allergic to cephalosporins. DISCHARGE MEDICATIONS: Aspirin enteric-coated 25 mg daily, Plavix 75 mg daily, Zetia 10 mg daily, nitroglycerin 0.4 mg sublingual p.r.n. chest discomfort, taking 1 tablet, waiting 5 minutes and take additional x2. PHYSICAL EXAM ON THE DAY OF DISCHARGE: VITAL SIGNS: Blood pressure 114/76, heart rate 75 and regular, oxygen saturation 97% on room air, temperature 36.6. HEART: Rate regular. No murmurs, rubs, gallops. LUNGS: Sounds are clear to auscultation. No wheezes, rales, or rhonchi. Right groin site is intact with no bleeding, induration or pain. Peripheral pulses 2+ bilaterally with no edema. LAB: On 03/16/2017, sodium 137, potassium 4.1, chloride 107, carbon dioxide 20 , BUN 10, creatinine 0.8. GFR greater than 60. Glucose 88. Calcium 8.9, phosphorus 3.7, magnesium 2.0, total bilirubin 0.9, AST 18, lactate dehydrogenase 432, troponin was negative 3 times prior to the catheterization. Albumin 3.4. On 03/14/2017, lipids total cholesterol 159, triglycerides 171, LDL calculated 93, VLDL cholesterol 34, non HDL cholesterol 127, HDL cholesterol 32. DISCHARGE INSTRUCTIONS: Groin precautions for 1 week with no heavy lifting, pushing, pulling greater than 10 pounds. No tub baths, but okay to shower over the next week. He may start gentle exercise with gradual increase over the next week. Recommend participating in cardiac rehab through the [facility] system. Make appointment to follow up with [facility] cardiologists in the next 7-10 days. Creatinine lab slip given to check creatinine in 3 days. He will need to be started on a statin medication once established with Cardiology at [facility]. In the interim, we did start him on Zetia. He was placed on metoprolol tartrate; however, he did have hypotensive response with systolic blood pressure in the 90s and heart rate as low as 48. Metoprolol was held and can be re-evaluated for restart by [facility]. Should he have further questions or concerns, he is encouraged to call our office at [facility]. His records will be sent to [facility] for continuation of care. At this time, he currently is stable for discharge. /[id number]/MODL MTDD
[2017-03-17] MEDS ORDERED: EZETIMIBE 10 MG TAB PO SCH (09:00)
== END 2017-03-16 13:38 | disposition home or self-care (01) ==
LOC: F2W 22:02
PROVIDERS: ADMIT Family Medicine; ATTEND Internal Medicine Interventional Cardiology
DX: I25.119 Atherosclerotic heart disease of native coronary artery with unspecified angina pectoris (principal); I24.9 Acute ischemic heart disease, unspecified; Q24.5 Malformation of coronary vessels; I49.3 Ventricular premature depolarization; I47.1 Supraventricular tachycardia; E78.5 Hyperlipidemia, unspecified; T46.6X5A Adverse effect of antihyperlipidemic and antiarteriosclerotic drugs, initial encounter; Z95.5 Presence of coronary angioplasty implant and graft; Z82.49 Family history of ischemic heart disease and other diseases of the circulatory system
CPT/HCPCS: 71020; 92928; 93005; 93306; 93458; 99285; C1725; C1769; C1887; G0378; C1760; C1874; C9600; J0461; J1644; J1940; J2250; J3010; Q9967

== ENCOUNTER 2017-03-20 17:14 | Observation (INO) | payer OTHER ==
--- NOTE | 2017-03-20 17:30 | CPEKG ---
Heart Rate: 70 RR Interval: 857 P-R Interval: 164 QRSD Interval: 94 QT Interval: 408 QTC Interval: 441 P [place]: 63 QRS [place]: -37 T Wave [place]: 37 EKG Severity - OTHERWISE NORMAL ECG - EKG Impression: SINUS RHYTHM EKG Impression: LEFT AXIS DEVIATION Electronically Signed By: Shayy Light 20-Mar-2017 22:54:45
[2017-03-20 17:55] LABS: % IMMATURE GRANULYOCYTES 0.4 % (0.0-1.1); ABSOLUTE IMMATURE GRANULOCYTES 0.02 10^3/uL (0.00-0.10); ADD DIFF? NO; ADD MORPH? NO; ADD SCAN? NO; ATYPICAL LYMPHOCYTE FLAG 20 (0-99); FRAGMENT RBC FLAG 0 (0-99); HEMATOCRIT 42.4 % (40.0-51.0); HEMOGLOBIN 14.3 g/dL (13.7-17.5); LEFT SHIFT FLG 0 (0-99); LIPEMIA HEMOLYSIS FLAG 80 (0-99); MEAN CELL HEMOGLOBIN 30.4 pg (27.9-34.1); MEAN CELL HEMOGLOBIN CONCENTR. 33.7 g/dL (32.4-36.7); MEAN PLATELET VOLUME 10.6 fL (8.7-11.7); PLATELET CLUMPS FLAG 0 (0-99); PLATELET COUNT 234 10^3/uL (150-400); RED BLOOD CELL COUNT 4.71 10^6/uL (4.40-6.38); RED CELL DISTRIBUTION WIDTH 12.4 % (11.5-15.2)
[2017-03-20] MEDS ORDERED: NITROGLYCERIN 0.4 MG BTL SL PRN ×2 (18:09→21:24)
--- NOTE | 2017-03-20 18:10 | EDPHY ---
HPI/HX/ROS/PE/MDM Narrative: CHIEF COMPLAINT: Chest pain HISTORY OF PRESENT ILLNESS: This patient is an anticoagulated 61 year old male arriving with his complaining of chest pain onset two and a half hours ago. He recently developed SVT, and was seen Tuesday03/14/17 for anterior chest discomfort. He underwent cardiac catheterization with Dr. Riddle, and received a stent in his right coronary artery. He spent one night in the hospital, and was discharged home Tuesday03/16/17, four days ago. He states he was feeling well until today around 3:30pm, two and a half hours ago, when he began to feel small sharp pains in his left lateral chest wall and the inside of his left arm. He states these pains are mostly very brief, but never lasting longer than 10 minutes. The patient cannot identify any precipitating factors. He denies lightheadedness or dizziness or sweating. He states he has been up and walking since his discharge from the hospital. He states these sensations are very different from his previous pressure and tightness that precipitated his catheterization. No fever, chills, shortness of breath, palpitations, vomiting, diarrhea, urinary complaints, headache, lightheadedness. He reports he has taken his aspirin and Plavix today. REVIEW OF SYSTEMS: Aside from elements discussed in the HPI, a comprehensive 10-point review of systems was reviewed and is negative. PAST MEDICAL HISTORY: Hyperlipidemia (Zetia), Stent (Plavix, Aspirin 81mg) SOCIAL HISTORY: Never smoked. at bedside. VITAL SIGNS: Reviewed by me GENERAL: Well-developed, well-nourished, resting comfortably in no respiratory distress. Anxious. Concerned about the pain. HEENT: Atraumatic. Eyes: No icterus, no injection. Mouth: moist mucous membranes. No erythema or lesions. Neck: supple with no adenopathy. LUNGS: Clear to auscultation bilaterally, no wheezes, rhonchi or rales. CARDIAC: Regular rate and rhythm, no rubs, murmurs or gallops. CHEST: Nontender, no subq air, no rash, no crepitus. ABDOMEN: Soft, nontender, nondistended, bowel sounds normal. BACK: No CVA tenderness. EXTREMITIES: No trauma. No edema. Range of motion is normal throughout. No rash , swelling, tenderness on left upper arm. NEURO: Alert and oriented, grossly nonfocal. SKIN: Warm and dry, no rash. PSYCHIATRIC: Normal mentation, no agitation. Portions of this note were transcribed by a manager medical. I personally performed a history, physical exam, medical decision making, and confirmed accuracy of information the transcribed note. ED Course: This patient is a 61 year old male presenting with left lateral chest pain and left inner arm pain four days post cardiac catheterization and right coronary artery stent placement. Physical exam unremarkable. Plan for labs including CHEM and Troponin. The 12 lead EKG was interpreted by myself. See hard copy and/or "tracemaster" electronic copy for interpretation. Sinus rhythm, rate 70. Left axis deviation. Labs unremarkable. Neg troponin and neg ddimer. Chest x-ray shows no acute findings. 18:[address] Loaiza, customer service supervisor. There is minimal concern for a repeated cardiac event at this point. He feels patient safe from a cardiac standpoint to be discharged home and follow up with cardiology as scheduled. Reassessed patient. He is feeling quite concerned regarding his chest and arm pain. Plan to admit for continued monitoring of his chest pain. 20:18 Spoke with hospitalist service. Dr. Rasmussen accepts admission. MDM: Diff dx of patient presenting complaints considered including but not limited to acute coronary disease, stent occlusion, pericarditis, coronary spasm, anxiety, PE, upper DVT, pericarditis. - Data Points Imaging Results: Imaging Impressions Chest X-Ray 03/20/17 17:41 Impression: No acute pulmonary disease. Imaging: I viewed and interpreted images myself Laboratory Results: Laboratory Results 03/20/17 17:35 03/20/17 17:35 03/20/17 03/20/17 03/20/17 17:35 17:35 17:35 WBC 5.53 10^3/uL 10^3/uL (3.80-9.50) RBC 4.71 10^6/uL 10^6/uL (4.40-6.38) Hgb 14.3 g/dL g/dL (13.7-17.5) Hct 42.4 % % (40.0-51.0) MCV 90.0 fL fL (81.5-99.8) MCH 30.4 pg pg (27.9-34.1) MCHC 33.7 g/dL g/dL (32.4-36.7) RDW 12.4 % % (11.5-15.2) Plt Count 234 10^3/uL 10^3/uL (150-400) MPV 10.6 fL fL (8.7-11.7) Neut % (Auto) 57.4 % % (39.3-74.2) Lymph % (Auto) 31.5 % % (15.0-45.0) [place] % (Auto) 7.8 % % (4.5-13.0) Eos % (Auto) 2.0 % % (0.6-7.6) Baso % (Auto) 0.9 % % (0.3-1.7) Nucleat RBC Rel Count 0.0 % % (0.0-0.2) Absolute Neuts (auto) 3.18 10^3/uL 10^3/uL (1.70-6.50) Absolute Lymphs (auto) 1.74 10^3/uL 10^3/uL (1.00-3.00) Absolute Monos (auto) 0.43 10^3/uL 10^3/uL (0.30-0.80) Absolute Eos (auto) 0.11 10^3/uL 10^3/uL (0.03-0.40) Absolute Basos (auto) 0.05 10^3/uL 10^3/uL (0.02-0.10) Absolute Nucleated RBC 0.00 10^3/uL 10^3/uL (0-0.01) Immature Gran % 0.4 % % (0.0-1.1) Immature Gran # 0.02 10^3/uL 10^3/uL (0.00-0.10) D-Dimer 0.49 ug/mLFEU ug/mLFEU (0.00-0.50) Sodium 138 mEq/L mEq/L (134-144) Potassium 4.3 mEq/L mEq/L (3.5-5.2) Chloride 105 mEq/L mEq/L (97-110) Carbon Dioxide 21 mEq/l L mEq/l (22-31) Anion Gap 12 mEq/L mEq/L (8-16) BUN 11 mg/dL mg/dL (7-23) Creatinine 0.8 mg/dL mg/dL (0.7-1.3) Estimated GFR > 60 Glucose 76 mg/dL mg/dL (70-100) Calcium 9.5 mg/dL mg/dL (8.5-10.4) Troponin I < 0.012 ng/mL ng/mL (0-0.034) General Time Seen by Provider: 03/20/17 17:32 Initial Vital Signs: Initial Vital Signs Temperature (C) 36.5 C 03/20/17 17:16 Heart Rate 70 03/20/17 17:16 Respiratory Rate 16 03/20/17 17:16 Blood Pressure 121/77 H 03/20/17 17:16 O2 Sat (%) 97 03/20/17 17:16 O2 Delivery Mode Nasal Cannula O2 (L/minute) 2 Allergies/Adverse Reactions: Cephalosporins Allergy (Verified 03/20/17 17:16) hive Home Medications: Medication Instructions Recorded Aspirin EC [Aspirin EC 325 mg (*)] 325 mg PO DAILY #0 tab 03/16/17 Clopidogrel Bisulfate [Plavix (*)] 75 mg PO DAILY #30 tab 03/16/17 Ezetimibe [Zetia 10 MG (*)] 10 mg PO DAILY #30 tab 03/16/17 Nitroglycerin [Nitrostat 0.4 mg 0.4 mg SL PRN PRN #1 btl 03/16/17 (*)] Herbals/Supplements -Info Only 1 ea PO DAILY 03/20/17 Departure - Departure Disposition: [facility] Inpatient Acute Clinical Impression: Chest pain Qualifiers: Chest pain type: unspecified Qualified Code(s): R07.9 - Chest pain, unspecified Arm pain Qualifiers: Laterality: left Qualified Code(s): M79.602 - Pain in left arm Condition: Fair Report Scribed for: Noy Garzon Report Scribed by: Meggan Hui Date of Report: 03/20/17 Time of Report: 18:13
[2017-03-20 18:26] LABS: ANION GAP 12 mEq/L (8-16); CALCIUM 9.5 mg/dL (8.5-10.4); CARBON DIOXIDE 21 mEq/l (22-31); CHLORIDE 105 mEq/L (97-110); CREATININE 0.8 mg/dL (0.7-1.3); GLOMERULAR FILTRATION RATE > 60; GLUCOSE 76 mg/dL (70-100); POTASSIUM 4.3 mEq/L (3.5-5.2); SODIUM 138 mEq/L (134-144)
[2017-03-20 18:38] LABS: TROPONIN I < 0.012 ng/mL (0-0.034)
[2017-03-20] MEDS ORDERED: ACETAMINOPHEN 500 MG TAB PO ONE (19:23)
--- NOTE | 2017-03-20 21:17 | PDGENHP ---
History and Physical History and Physical: HISTORY AND PHYSICAL CC:Chest pain HISTORY: This patient comes into the ER tonight complaining of chest pain that started around 3 o'clock this afternoon. Initially he felt brief episodes of sharp pain occurring at different locations around the central and left chest, left posterior rib areas and the medial aspect of the left arm. These were not brought on by anything that he can think of, and when I aggravated by any kind of movement or deep breath. He did not have any shortness of breath, cough, fever symptoms. The patient came into the ER for evaluation and while he has been in the ER he stopped having the sharp pains and now has a more persistent ache that vaguely described in quality and location but more in the left side of the chest than the right. Again there is no shortness of breath, pleuritic component, palpitations.There is no pain or swelling in the legs, and he has not had any recent travel. Notably the patient was admitted here approximately a week ago with some chest symptoms and was diagnosis having SVT. This was treated with adenosine and he was discharged home. Subsequently he came back a couple days later with some pressure sensation in the anterior central chest radiating into the left arm and had a mildly elevated troponin. 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 He had a stent placed in his right coronary artery which was successful and uncomplicated. He was discharged on aspirin Plavix and cholesterol medications which he has been taking. ROS: A comprehensive 10 system review revealed no other significant findings PAST MEDICAL HISTORY: Coronary artery disease as above,With recent stent to the right coronary artery SVT Cholecystectomy FAMILY MEDICAL HISTORY: Congestive heart failure in both parents SOCIAL HISTORY: lives with his is here at the bedside with him now No tobacco alcohol or drugs MEDICATIONS: The patients list has been reconciled by our clinical pharmacist in the EMR. I have reviewed the list and ordered appropriate medicines. PHYSICAL EXAMINATION: Vital Signs: normal without fever Machine Worker: sinus rhythm Examination: General: alert, oriented, good mentation, relaxed Skin: warm, dry, good color, no rash HEENT: normal Neck: no mass or jvd Resps: relaxed Lungs: clear breath sounds Heart: regular, no murmur, no friction rub Abdomen: soft, nondistended, nontender, +BS, no mass Upper Extremities: normal Lower Extremities: no edema, warm No Bleeding or bruising Neurologic: normal speech/language, normal miter operator, no focal weakness IV site: looks normal LABORATORY DATA: normal cardiac troponin, D-dimer and CBC Metabolic panel is remarkable for a slightly low CO2 level which was also slightly low on the admission chemistry for his 2 previous stays here RADIOLOGY STUDIES: chest x-ray, I reviewed the images from the study today which shows no cardiac or pulmonary or vascular abnormalities in my reading 12 LEAD EKG: I reviewed the tracing of the ER EKG today and compared with previous EKGs from his previous stays. There is no change from his previous EKGs. There is a sinus rhythm with no evidence of ischemia, injury, pericarditis. ASSESSMENT: Chest pain of uncertain etiology Recent stenting of the right coronary artery Metabolic acidosis, mild, present on blood tests from each of his last 3 admissions ; question renal tubular acidosis or other cause PLANS: - observe overnight in the hospital to ensure stability of his current condition and that his chest pain does not evolve into more concerning picture -Continue current aspirin, Plavix, lipid therapy -I reviewed his serum chemistry results with him and recommended that he follow up with his primary care physician to see if further testing should be done for cause of acidosis I have reviewed the patient's case in detail with Dr. Noy Garzon I have reviewed the patient's past medical records as part of this assessment, including previous hospital admission records including procedure notes, physician notes, lab data, EKGs
[2017-03-20] MEDS ORDERED: ONDANSETRON 4 MG/2 ML VIAL IVP PRN (21:22)
[2017-03-20] MEDS ORDERED: ACETAMINOPHEN 325 MG TAB PO PRN (21:22)
[2017-03-20] MEDS ORDERED: ZOLPIDEM TARTRATE 5 MG TAB PO PRN (21:22)
[2017-03-21 07:33] VITALS: BP 103/64; PULSE 67; RESP 14; TEMP 98.1; O2SAT 91
[2017-03-21] MEDS ORDERED: EZETIMIBE 10 MG TAB PO SCH (09:00)
[2017-03-21] MEDS ORDERED: CLOPIDOGREL BISULFATE 75 MG TAB PO SCH (09:00)
[2017-03-21] MEDS ORDERED: ASPIRIN EC 325 MG TAB PO SCH (09:00)
--- NOTE | 2017-03-21 09:43 | PDCARPN ---
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 Comes back in with migratory L chest pain with sharp discomfort and some pain in L neck and L medial aspect of L arm. No associated symptoms. No positional or respirophasic components. Improved with Tylenol. #. recent ACS: no e/o elevated trop or ECG changes may d/c to o/p followup #. cp: likely M/S try massage/relaxation and continued Tylenol Plan: OK to d/c from cardiac perspective 03/21/17 09:41 Subjective: CP o/s 3 PM. Dissimilar from recent S/S discomfort. Reviewed/Discussed With: family, hospitalist Objective: Vital Signs (8 Hrs) Temp Pulse Resp BP Pulse Ox 03/21/17 07:28 98.1 F 67 14 103/64 91 L 03/21/17 04:00 97.8 F 84 12 105/66 94 Intake/Output (24 Hrs) 03/20/17 03/21/17 03/22/17 05:59 05:59 05:59 Intake Total 100 Balance 100 Intake: Oral (ml) 100 Other: Weight 86.1 kg Number of Voids Toilet 1 Result Diagrams: 03/20/17 17:35 03/20/17 17:35 Cardiac Labs: Cardiac Lab Results (72 Hrs) 03/21/17 03/20/17 06:05 23:45 Troponin I < 0.012 < 0.012 EKG: SR with inf Qs Telemetry: SR Echocardiogram: reviewed from previous admission: grossly normal - Physical Exam Constitutional: no apparent distress Eyes: PERRL Ears, Nose, Mouth, Throat: moist mucous membranes Cardiovascular: regular rate and rhythm, no murmurs Respiratory: clear to auscultate bilat, no crackles Skin: no rashes, warm Neurologic: AAOx3 Psychiatric: cooperative, interactive ICD10 Worksheet Patient Problems: Problems Problem Status Onset Arm pain Acute Acute coronary insufficiency Acute Status post placement of stent in right coronary artery Acute Anomalous right coronary artery Acute Coronary artery disease Acute Chest pain Acute
--- NOTE | 2017-03-21 10:42 | GDS ---
[f rep st] DISCHARGE SUMMARY DISCHARGE DIAGNOSES: 1. Chest pain, possibly musculoskeletal. 2. History of recent stenting to right coronary artery 1 week ago. 3. History of supraventricular tachycardia recently. HISTORY: This is a 61-year-old male who presented with sharp left-sided chest pain, starting yester day at about 3 p.m. HOSPITAL COURSE: Patient's EKG was nonischemic. Serial cardiac enzymes were performed, and they we re all negative. His pain is improved with Tylenol. This is not believed to be a stent occlusion. He actually has an appointment with cardiologists for the next 3 days, and his primary care doctor on Tuesday. He will be discharged home to resume his home medicines. /[id number]/MODL
== END 2017-03-21 10:35 | disposition home or self-care (01) ==
LOC: F2W 21:07
PROVIDERS: ADMIT Internal Medicine; ATTEND Internal Medicine
DX: R07.89 Other chest pain (principal); I47.1 Supraventricular tachycardia; I25.10 Atherosclerotic heart disease of native coronary artery without angina pectoris; Z95.5 Presence of coronary angioplasty implant and graft; E78.5 Hyperlipidemia, unspecified
CPT/HCPCS: 71020; 93005; G0378

== ENCOUNTER 2017-04-29 00:11 | Emergency (ER) | payer OTHER ==
[2017-04-29 00:15] VITALS: RESP 16
--- NOTE | 2017-04-29 00:27 | CPEKG ---
Heart Rate: 67 RR Interval: 896 P-R Interval: 176 QRSD Interval: 82 QT Interval: 424 QTC Interval: 448 P [place]: 62 QRS [place]: -31 T Wave [place]: 39 EKG Severity - OTHERWISE NORMAL ECG - EKG Impression: SINUS RHYTHM EKG Impression: LEFT AXIS DEVIATION Electronically Signed By: Raine Car 29-Apr-2017 07:15:52
[2017-04-29 00:31] VITALS: TEMP 97.9
[2017-04-29 00:41] LABS: % IMMATURE GRANULYOCYTES 0.3 % (0.0-1.1); ABSOLUTE IMMATURE GRANULOCYTES 0.02 10^3/uL (0.00-0.10); ADD DIFF? NO; ADD MORPH? NO; ADD SCAN? NO; ATYPICAL LYMPHOCYTE FLAG 0 (0-99); FRAGMENT RBC FLAG 0 (0-99); HEMATOCRIT 38.8 % (40.0-51.0); HEMOGLOBIN 13.3 g/dL (13.7-17.5); LEFT SHIFT FLG 0 (0-99); LIPEMIA HEMOLYSIS FLAG 90 (0-99); MEAN CELL HEMOGLOBIN 31.1 pg (27.9-34.1); MEAN CELL HEMOGLOBIN CONCENTR. 34.3 g/dL (32.4-36.7); MEAN CELL VOLUME 90.9 fL (81.5-99.8); MEAN PLATELET VOLUME 9.6 fL (8.7-11.7); PLATELET CLUMPS FLAG 0 (0-99); PLATELET COUNT 215 10^3/uL (150-400); RED BLOOD CELL COUNT 4.27 10^6/uL (4.40-6.38); RED CELL DISTRIBUTION WIDTH 12.9 % (11.5-15.2)
[2017-04-29 00:55] LABS: ANION GAP 12 mEq/L (8-16); CALCIUM 9.1 mg/dL (8.5-10.4); CARBON DIOXIDE 21 mEq/l (22-31); CHLORIDE 110 mEq/L (97-110); CREATININE 0.8 mg/dL (0.7-1.3); GLOMERULAR FILTRATION RATE > 60; GLUCOSE 84 mg/dL (70-100); POTASSIUM 4.1 mEq/L (3.5-5.2); SODIUM 143 mEq/L (134-144)
--- NOTE | 2017-04-29 00:59 | EDPHY ---
H & P Stated Complaint: l side chest pain, worse with deep breathing Time Seen by Provider: 04/29/17 00:30 HPI/ROS: HPI The patient presents with chest pain which began at approximately 10:00 p.m. tonight while he was going to bed. The pain is in his left chest, described as sharp and constant though worse with a deep breath. He has had similar pain over the last 1 week at night, though not quite as severe. He took 2 nitroglycerin tabs without any improvement in his symptoms. He does feel the pain is worse when he lies down. He does not have any shortness of breath, nausea, vomiting, dizziness, diaphoresis. He had similar pain several weeks ago and had a normal workup in the hospital. He has a RCA stent that was placed on March 15. 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 He is scheduled for stress echo on May 10.. REVIEW OF SYSTEMS Constitutional: No fever, no chills. Eyes: No discharge. ENT: No sore throat. Cardiovascular: Positive for chest pain, no palpitations. Respiratory: No cough, no shortness of breath. Gastrointestinal: No abdominal pain, no vomiting. Genitourinary: No hematuria. Musculoskeletal: No back pain. Skin: No rashes. Neurological: No headache. PMHx: CAD Soc Hx: Lives at home with PHYSICAL General Appearance: Alert, no distress Eyes: Pupils equal and round no pallor or injection ENT, Mouth: Mucous membranes moist Respiratory: There are no retractions, lungs are clear to auscultation Cardiovascular: Regular rate and rhythm Gastrointestinal: Abdomen is soft and non-tender, no masses, bowel sounds normal Neurological: A&O, moves all extremities Skin: Warm and dry, no rashes Musculoskeletal: Neck is supple non tender Extremities: symmetrical, full range of motion Psychiatric: Patient is oriented X 3, there is no agitation Source: Patient Exam Limitations: No limitations - Personal History Current Tetanus/Diphtheria Vaccine: Yes Tetanus Vaccine Date: 2012 - Medical/Surgical History Hx Asthma: No Hx Chronic Respiratory Disease: No Hx Diabetes: No Hx Cardiac Disease: Yes Hx Renal Disease: No Hx Cirrhosis: No Hx Alcoholism: No Hx HIV/AIDS: No Hx Splenectomy or Spleen Trauma: No Other PMH: PMH: /SVT. PSH: choly, wisdom teeth extraction. cardiac stents - Social History Smoking Status: Never smoked Constitutional: Initial Vital Signs Temperature (C) 36.6 C 04/29/17 00:12 Heart Rate 66 04/29/17 00:12 Respiratory Rate 16 04/29/17 00:12 Blood Pressure 104/66 04/29/17 00:12 O2 Sat (%) 95 04/29/17 00:12 O2 Delivery Mode Room Air Allergies/Adverse Reactions: Cephalosporins Allergy (Verified 04/29/17 00:15) hive Home Medications: Medication Instructions Recorded Clopidogrel Bisulfate [Plavix (*)] 75 mg PO DAILY #30 tab 03/16/17 Ezetimibe [Zetia 10 MG (*)] 10 mg PO DAILY #30 tab 03/16/17 Nitroglycerin [Nitrostat 0.4 mg 0.4 mg SL PRN PRN #1 btl 03/16/17 (*)] Herbals/Supplements -Info Only 1 ea PO DAILY 03/20/17 Aspirin [Aspirin 81mg (*)] 81 mg PO DAILY 04/29/17 Medical Decision Making - Diagnostics EKG Interpretation: EKG: Complete interpretation has been separately recorded in the [employer] archive. Summary impression: Normal sinus rhythm Imaging Results: Chest x-ray two view is unremarkable, no cardiomegaly, no effusion interpreted by me, radiology interpretation is pending. Differential Diagnosis: This is a 61-year-old man with history of CAD with recent RCA stenting on March 15 who presents with chest pain which occurred while going to bed tonight at rest which is left-sided pleuritic and sharp in nature without any associated features. Differential diagnosis includes musculoskeletal pain, costochondritis, ACS, GERD. In the emergency room chest x-ray EKG and troponin were checked, all unremarkable. The patient felt well with improvement in his chest pain. He had no events on the youth nutritional monitor. I consulted with Dr. Ang Leon on-call for Cardiology and he recommended serial troponins, if normal the patient can be discharged home from the emergency room. The patient had a repeat troponin which was negative as well as repeat EKG that was unremarkable. He felt well enough to go home and will follow up as planned with his lifter. - Data Points Laboratory Results: Laboratory Results 04/29/17 00:34 04/29/17 00:34 04/29/17 04/29/17 04/29/17 03:30 00:34 00:34 WBC RBC Hgb Hct MCV MCH MCHC RDW Plt Count MPV Neut % (Auto) Lymph % (Auto) [place] % (Auto) Eos % (Auto) Baso % (Auto) Nucleat RBC Rel Count Absolute Neuts (auto) Absolute Lymphs (auto) Absolute Monos (auto) Absolute Eos (auto) Absolute Basos (auto) Absolute Nucleated RBC Immature Gran % Immature Gran # D-Dimer < 0.27 ug/mLFEU ug/mLFEU (0.00-0.50) Sodium 143 mEq/L mEq/L (134-144) Potassium 4.1 mEq/L mEq/L (3.5-5.2) Chloride 110 mEq/L mEq/L (97-110) Carbon Dioxide 21 mEq/l L mEq/l (22-31) Anion Gap 12 mEq/L mEq/L (8-16) BUN 15 mg/dL mg/dL (7-23) Creatinine 0.8 mg/dL mg/dL (0.7-1.3) Estimated GFR > 60 Glucose 84 mg/dL mg/dL (70-100) Calcium 9.1 mg/dL mg/dL (8.5-10.4) Troponin I < 0.012 ng/mL ng/mL < 0.012 ng/mL ng/mL (0-0.034) (0-0.034) 04/29/17 00:34 WBC 6.08 10^3/uL 10^3/uL (3.80-9.50) RBC 4.27 10^6/uL L 10^6/uL (4.40-6.38) Hgb 13.3 g/dL L g/dL (13.7-17.5) Hct 38.8 % L % (40.0-51.0) MCV 90.9 fL fL (81.5-99.8) MCH 31.1 pg pg (27.9-34.1) MCHC 34.3 g/dL g/dL (32.4-36.7) RDW 12.9 % % (11.5-15.2) Plt Count 215 10^3/uL 10^3/uL (150-400) MPV 9.6 fL fL (8.7-11.7) Neut % (Auto) 50.5 % % (39.3-74.2) Lymph % (Auto) 36.5 % % (15.0-45.0) [place] % (Auto) 9.2 % % (4.5-13.0) Eos % (Auto) 2.5 % % (0.6-7.6) Baso % (Auto) 1.0 % % (0.3-1.7) Nucleat RBC Rel Count 0.0 % % (0.0-0.2) Absolute Neuts (auto) 3.07 10^3/uL 10^3/uL (1.70-6.50) Absolute Lymphs (auto) 2.22 10^3/uL 10^3/uL (1.00-3.00) Absolute Monos (auto) 0.56 10^3/uL 10^3/uL (0.30-0.80) Absolute Eos (auto) 0.15 10^3/uL 10^3/uL (0.03-0.40) Absolute Basos (auto) 0.06 10^3/uL 10^3/uL (0.02-0.10) Absolute Nucleated RBC 0.00 10^3/uL 10^3/uL (0-0.01) Immature Gran % 0.3 % % (0.0-1.1) Immature Gran # 0.02 10^3/uL 10^3/uL (0.00-0.10) D-Dimer Sodium Potassium Chloride Carbon Dioxide Anion Gap BUN Creatinine Estimated GFR Glucose Calcium Troponin I Medications Given: Discontinued Medications Acetaminophen (Tylenol 160mg/5ml Oral Liquid) 1,000 mg PO EDNOW ONE Stop: 04/29/17 01:29 Last Admin: 04/29/17 01:32 Dose: 1,000 mg Ketorolac Tromethamine (Toradol) 15 mg IVP EDNOW ONE Stop: 04/29/17 01:03 Last Admin: 04/29/17 01:28 Dose: Not Given Departure - Departure Disposition: Home, Routine, Self-Care Clinical Impression: Chest pain Qualifiers: Chest pain type: chest pain on breathing Qualified Code(s): R07.1 - Chest pain on breathing Coronary artery disease Qualifiers: Coronary Disease-Associated Artery/Lesion type: [place] artery [place] vs. transplanted heart: [place] heart Associated angina: without angina Qualified Code(s): I25.10 - Atherosclerotic heart disease of [place] coronary artery without angina pectoris Condition: Good Instructions: Chest Pain (ED) Additional Instructions: Please return to the emergency room if your worse in any way. Referrals: ANNABELLA HOLLAND [Other] - As per Instructions Nathan Riddle MD [Medical Doctor] - As per Instructions
[2017-04-29] MEDS ORDERED: KETOROLAC 15 MG/1 ML SDV IVP ONE (01:02)
[2017-04-29 01:07] LABS: TROPONIN I < 0.012 ng/mL (0-0.034)
[2017-04-29] MEDS ORDERED: ACETAMINOPHEN 160 MG/5 ML UDCUP PO ONE (01:28)
[2017-04-29] MEDS ORDERED: ACETAMINOPHEN 500 MG TAB ONE (01:30)
[2017-04-29 04:34] VITALS: BP 107/80; PULSE 70; O2SAT 96
--- NOTE | 2017-04-29 07:55 | CPEKG ---
Heart Rate: 59 RR Interval: 1017 P-R Interval: 188 QRSD Interval: 88 QT Interval: 448 QTC Interval: 444 P [place]: 58 QRS [place]: -27 T Wave [place]: 33 EKG Severity - OTHERWISE NORMAL ECG - EKG Impression: SINUS RHYTHM EKG Impression: BORDERLINE LEFT AXIS DEVIATION Electronically Signed By: Tamika Sanderson 29-Apr-2017 23:17:21
== END 2017-04-29 04:34 | disposition home or self-care (01) ==
DX: I25.10 Atherosclerotic heart disease of native coronary artery without angina pectoris (principal); Z79.82 Long term (current) use of aspirin
CPT/HCPCS: J1885

== ENCOUNTER 2017-10-27 19:44 | Observation (INO) | payer BC, OTHER ==
--- NOTE | 2017-10-27 19:56 | CPEKG ---
Heart Rate: 86 RR Interval: 698 P-R Interval: 160 QRSD Interval: 90 QT Interval: 364 QTC Interval: 436 P [place]: 73 QRS [place]: -48 T Wave [place]: 54 EKG Severity - OTHERWISE NORMAL ECG - EKG Impression: SINUS RHYTHM EKG Impression: LEFT AXIS DEVIATION Electronically Signed By: Rosa Rendon 27-Oct-2017 21:38:24
[2017-10-27 20:06] LABS: PLATELET COUNT 249 10^3/uL (150-400)
--- NOTE | 2017-10-27 20:14 | EDPHY ---
H & P Stated Complaint: Left side CP and left arm burning with relief with one nitro Time Seen by Provider: 10/27/17 19:57 HPI/ROS: CHIEF COMPLAINT: Chest pain HISTORY OF PRESENT ILLNESS: The patient is an anticoagulated 62 y/o male with a history of CAD status post RCA stent in February 2017 who arrives with his complaining of acute onset chest pain today. Around noon, 8 hours ago, he developed a sharp left-sided chest pain that felt very similar to pain he had following his stent last summer. This pain is slightly more lateral than his prior experience. Within 5 hours the pain started to spread around left chest and into left arm and changed to more of a tight sensation. This was associated with left arm numbness. He took nitro at 19:00, 1 hour ago, and that relieved almost all of his symptoms, though he continues to have a mild chest tightness with pain rated 2/10 in severity and tingling in his left fingers. He denies any associated dyspnea, nausea, diaphoresis, abdominal pain, vomiting, recent illness, or recent trauma. He did take his Plavix and aspirin today. REVIEW OF SYSTEMS: Constitutional: No fever, no chills Eyes: No visual changes ENT: No sore throat Respiratory: No cough, no shortness of breath Cardiac: see HPI Gastrointestinal: No nausea, no vomiting, no abdominal pain Genitourinary: No hematuria, no dysuria Musculoskeletal: No leg pain or swelling Skin: No rash Neurological: see HPI Psychiatric: No depression - Personal History Current Tetanus/Diphtheria Vaccine: Yes Current Tetanus Diphtheria and Acellular Pertussis (TDAP): Yes Tetanus Vaccine Date: 2012 - Medical/Surgical History PMH: PMH includes: 1. CAD with RCA stent February 2016 2. SVT 3. Cholecystectomy On Plavix, aspirin, Crestor Prior medical records reviewed including admission 03/20/17 for chest pain. Hx Asthma: No Hx Chronic Respiratory Disease: No Hx Diabetes: No Hx Cardiac Disease: Yes Hx Renal Disease: No Hx Cirrhosis: No Hx Alcoholism: No Hx HIV/AIDS: No Hx Splenectomy or Spleen Trauma: No Other PMH: PMH: /SVT. PSH: choly, wisdom teeth extraction. cardiac stents - Social History Smoking Status: Never smoked Additional Social History: Dr. Riddle - Physical Exam Exam: General Appearance: Alert, pleasant Eyes: Pupils equal and round, no conjunctival pallor ENT, Mouth: Mucous membranes moist Neck: Normal inspection Respiratory: Lungs are clear to auscultation Cardiovascular: Regular rate and rhythm Gastrointestinal: Abdomen is soft and non-tender Neurological: A&O, nonfocal, normal gait Skin: Warm and dry, no rash Extremities: Nontender, no pedal edema Psychiatric: Mood and affect normal Constitutional: Initial Vital Signs Temperature (C) 36.5 C 10/27/17 19:45 Heart Rate 86 10/27/17 19:45 Respiratory Rate 16 10/27/17 19:45 Blood Pressure 118/72 10/27/17 19:45 O2 Sat (%) 96 10/27/17 19:45 O2 Delivery Mode Room Air Allergies/Adverse Reactions: Cephalosporins Allergy (Verified 10/27/17 19:48) hive Home Medications: Medication Instructions Recorded Clopidogrel Bisulfate [Plavix (*)] 75 mg PO DAILY #30 tab 03/16/17 Nitroglycerin [Nitrostat 0.4 mg 0.4 mg SL PRN PRN #1 btl 03/16/17 (*)] Herbals/Supplements -Info Only 1 ea PO DAILY 03/20/17 Aspirin [Aspirin 81mg (*)] 81 mg PO DAILY 04/29/17 Cholecalciferol Vit D3 [Vitamin D3 2,000 units PO DAILY 10/27/17 (*)] Rosuvastatin Calcium [Crestor 20mg 20 mg PO DAILY 10/27/17 (*)] Medical Decision Making - Diagnostics Imaging Results: CXR: NAD Imaging: I viewed and interpreted images myself ED Course/Re-evaluation: The 12 lead EKG was interpreted by myself. Sinus rhythm rate 86, no ST/T changes. See hard copy and/or "tracemaster" electronic copy for interpretation. Clinical presentation concerning for acute coronary syndrome, with 2 hr of persistent chest pain, now mainly relieved after nitroglycerin. Stat EKG reveals no evidence of ischemia or dysrhythmia. He already took Plavix and aspirin today. IV established and cardiac labs drawn. Chest x-ray ordered. Nitropaste 1 inch placed to anterior chest wall. Feels better. Consulted with hospitalist service. Dr. Ramos accepts admission. Stable through his ED stay. Differential Diagnosis: includes though not limited to ACS, PE, PTX, pneumonia, GI - Data Points Laboratory Results: Laboratory Results 10/27/17 19:55 10/27/17 19:55 Medications Given: Discontinued Medications Aspirin Buffered (Aspirin Ec) 325 mg PO DAILY [facility] Stop: 04/26/18 09:29 Last Admin: 10/28/17 11:15 Dose: 325 mg Clopidogrel Bisulfate (Plavix) 75 mg PO DAILY [facility] Stop: 04/26/18 09:29 Last Admin: 10/28/17 11:14 Dose: 75 mg Diazepam (Valium) 5 mg PO ONCALL ONE Stop: 10/28/17 12:15 Last Admin: 10/28/17 12:37 Dose: 5 mg Diphenhydramine HCl (Benadryl) 25 mg PO ONCALL ONE Stop: 10/28/17 12:15 Last Admin: 10/28/17 12:37 Dose: 25 mg Enoxaparin Sodium (Lovenox) 40 mg SC DAILY [facility] Stop: 04/26/18 08:59 Last Admin: 10/28/17 09:00 Dose: 40 mg Famotidine (Pepcid) 20 mg PO ONCALL ONE Stop: 10/28/17 12:15 Last Admin: 10/28/17 12:37 Dose: 20 mg Metoprolol Tartrate (Lopressor) 12.5 mg PO ONCE ONE Stop: 10/28/17 09:20 Last Admin: 10/28/17 11:12 Dose: 12.5 mg Nitroglycerin (Nitro-Bid 2%) 1 inch TP EDNOW ONE Stop: 10/27/17 20:16 Last Admin: 10/27/17 20:23 Dose: 1 inch Nitroglycerin (Nitrostat) 0.4 mg SL Q5M PRN PRN Reason: Chest Pain Stop: 04/25/18 22:14 Last Admin: 10/28/17 06:23 Dose: 0.4 mg Pneumococcal Polyvalent Vaccine (Pneumovax 23) 0.5 ml IM .ONCE ONE Stop: 10/28/17 13:09 Last Admin: 10/28/17 15:55 Dose: 0.5 ml Rosuvastatin Calcium (Crestor) 20 mg PO DAILY [facility] Stop: 04/26/18 09:29 Last Admin: 10/28/17 11:15 Dose: 20 mg Departure - Departure Disposition: [facility] Clinical Impression: Chest pain Qualifiers: Chest pain type: other chest pain Qualified Code(s): R07.89 - Other chest pain Condition: Good Report Scribed for: Rosa Rendon Report Scribed by: Nicci Nielsen Date of Report: 10/27/17 Time of Report: 20:16 Physician Review and Approval Statement: 10/27/17 20:16 Portions of this note were transcribed by a medical chief technician. I personally performed a history, physical exam, medical decision making, and confirmed accuracy of information the transcribed note.
[2017-10-27] MEDS ORDERED: NITROGLYCERIN 2% 1 GM PACKET TP ONE (20:15)
[2017-10-27] MEDS ORDERED: ACETAMINOPHEN 325 MG TAB PO PRN (22:13)
[2017-10-27] MEDS ORDERED: ONDANSETRON DISINTEGRATING 4 MG TAB PO PRN (22:13)
[2017-10-27] MEDS ORDERED: ONDANSETRON 4 MG/2 ML VIAL IVP PRN (22:13)
--- NOTE | 2017-10-27 23:18 | PDGENHP ---
History and Physical - Chief Complaint Chest pain - History of Present Illness 62 yo M w/ CAD s/p CINTHIA to RCA on 03/12 presents with chest pain. Patient states around 12 PM he noticed a sharp left sided chest pain. He notes this was similar to pain he had AFTER his stent was placed in February of last year. The cause of that pain was never found. Then, around 5 PM, he developed a dull ache in the same area that spread to his left arm. At that point he decided to come to the ED. Initial evaluation in the ED was negative and he was admitted for observation. History Information - Allergies/Home Medication List Allergies/Adverse Reactions: Cephalosporins Allergy (Verified 10/27/17 19:48) hive Home Medications: Herbals/Supplements -Info Only 1 ea PO DAILY 03/20/17 [Last Taken 10/27/17 08:00 ] Aspirin [Aspirin 81mg (*)] 81 mg PO DAILY 04/29/17 [Last Taken 10/27/17 08:00] Cholecalciferol Vit D3 [Vitamin D3 (*)] 2,000 units PO DAILY 10/27/17 [Last Taken 10/27/17 08:00] Rosuvastatin Calcium [Crestor 20mg (*)] 20 mg PO DAILY 10/27/17 [Last Taken 10/13 08:00] I have personally reviewed and updated: family history, medical history - Past Medical History coronary artery disease, SVT - Surgical History Reports: cholecystectomy - Family History Positive for: non-pertinent - Social History Smoking Status: Never smoked Review of Systems Review of Systems: ROS: 10pt was reviewed & negative except for what was stated in HPI & below Physical Exam Physical Exam: Temp Pulse Resp BP Pulse Ox 36.6 C 79 16 109/71 91 L 10/27/17 21:41 10/27/17 21:41 10/27/17 21:41 10/27/17 21:41 10/27/17 21:41 Constitutional: no apparent distress, not in pain Eyes: PERRL, EOMI Ears, Nose, Mouth, Throat: moist mucous membranes, no oral mucosal ulcers Cardiovascular: regular rate and rhythym, no murmur, rub, or gallop Respiratory: no respiratory distress, clear to auscultation Gastrointestinal: normoactive bowel sounds, soft, non-tender abdomen Skin: warm, normal color Musculoskeletal: full muscle strength, no muscle tenderness Neurologic: AAOx3, CN II-XII Intact Psychiatric: interacting appropriately, not anxious Lab Data & Imaging Review 10/27/17 19:55 10/27/17 19:55 WBC 7.93 10^3/uL (3.80-9.50) 10/27/17 19:55 RBC 4.91 10^6/uL (4.40-6.38) 10/27/17 19:55 Hgb 15.1 g/dL (13.7-17.5) 10/27/17 19:55 Hct 43.5 % (40.0-51.0) 10/27/17 19:55 MCV 88.6 fL (81.5-99.8) 10/27/17 19:55 MCH 30.8 pg (27.9-34.1) 10/27/17 19:55 MCHC 34.7 g/dL (32.4-36.7) 10/27/17 19:55 RDW 12.7 % (11.5-15.2) 10/27/17 19:55 Plt Count 249 10^3/uL (150-400) 10/27/17 19:55 MPV 9.4 fL (8.7-11.7) 10/27/17 19:55 Neut % (Auto) 62.6 % (39.3-74.2) 10/27/17 19:55 Lymph % (Auto) 24.1 % (15.0-45.0) 10/27/17 19:55 [place]on % (Auto) 10.5 % (4.5-13.0) 10/27/17 19:55 Eos % (Auto) 1.4 % (0.6-7.6) 10/27/17 19:55 Baso % (Auto) 0.9 % (0.3-1.7) 10/27/17 19:55 Nucleat RBC Rel Count 0.0 % (0.0-0.2) 10/27/17 19:55 Absolute Neuts (auto) 4.97 10^3/uL (1.70-6.50) 10/27/17 19:55 Absolute Lymphs (auto) 1.91 10^3/uL (1.00-3.00) 10/27/17 19:55 Absolute Monos (auto) 0.83 10^3/uL (0.30-0.80) H 10/27/17 19:55 Absolute Eos (auto) 0.11 10^3/uL (0.03-0.40) 10/27/17 19:55 Absolute Basos (auto) 0.07 10^3/uL (0.02-0.10) 10/27/17 19:55 Absolute Nucleated RBC 0.00 10^3/uL (0-0.01) 10/27/17 19:55 Immature Gran % 0.5 % (0.0-1.1) 10/27/17 19:55 Immature Gran # 0.04 10^3/uL (0.00-0.10) 10/27/17 19:55 Sodium 143 mEq/L (135-145) 10/27/17 19:55 Potassium 4.1 mEq/L (3.5-5.2) 10/27/17 19:55 Chloride 106 mEq/L (97-110) 10/27/17 19:55 Carbon Dioxide 19 mEq/l (22-31) L 10/27/17 19:55 Anion Gap 18 mEq/L (8-16) H 10/27/17 19:55 BUN 19 mg/dL (7-23) 10/27/17 19:55 Creatinine 0.8 mg/dL (0.7-1.3) 10/27/17 19:55 Estimated GFR > 60 10/27/17 19:55 Glucose 98 mg/dL (70-100) 10/27/17 19:55 Calcium 9.8 mg/dL (8.5-10.4) 10/27/17 19:55 Troponin I < 0.012 ng/mL (0.000-0.034) 10/27/17 19:55 Imaging Review: Imaging Impressions Chest X-Ray 10/27/17 20:00 Impression: No acute thoracic abnormality. Visualized and Interpreted EKG results: Yes EKG Interpretation: Positive for: normal sinsus rhythm, other (LAD) Assessment & Plan Assessment: 62 yo M w/ CAD s/p CINTHIA to RCA 03/12 presents w/ chest pain. Plan: 1. Chest pain - Concerning in that pain lasted for several hours, spread to left arm, and resolved almost entirely with nitroglycerin. He had stent placed to RCA in February of last year. Objective work-up negative for ischemia thus far. - Admit for observation - Monitor on telemetry, trend cardiac enzymes - Will consult cardiology regarding next step noting recent stent placement by Dr. Riddle 2. CAD - CINTHIA to RCA by Dr. Riddle on 03/12. He is compliant with DAPT and statin. Diet - Cardiac, NPO @ MN Code - Full Ppx- LMWH Dispo - Admit to PCU under observation status
[2017-10-28 04:26] LABS: PLATELET COUNT 219 10^3/uL (150-400)
[2017-10-28] MEDS: NITROGLYCERIN 0.4 MG BTL SL PRN ×2 (05:06→06:23)
[2017-10-28] MEDS ORDERED: ENOXAPARIN 40 MG/0.4 ML SYR SC SCH (09:00)
[2017-10-28] MEDS ORDERED: NITROGLYCERIN 0.4 MG BTL SL PRN (09:18)
[2017-10-28] MEDS ORDERED: METOPROLOL TARTRATE 25 MG TAB PO ONE (09:19)
[2017-10-28] MEDS ORDERED: CLOPIDOGREL BISULFATE 75 MG TAB PO SCH (09:30)
[2017-10-28] MEDS ORDERED: ASPIRIN EC 325 MG TAB PO SCH (09:30)
[2017-10-28] MEDS ORDERED: ROSUVASTATIN CALCIUM 20 MG TAB PO SCH (09:30)
--- NOTE | 2017-10-28 10:41 | ASMTCMCOM ---
CM Note CM Note Notes: 10/28/2017 Case Management Note Revewed chart. There are no case management d/c needs identified d/t pt age, marital status and activity levels prior to admission. There are no PT or OT evals ordered at this time. Case Management d/c poc: anticipating independent d/c with follow up as directed. Case Management to follow. Date Signed: 10/28/2017 10:40 AM Electronically Signed By:Radha Peguero RN
--- NOTE | 2017-10-28 11:27 | ECHO ---
[email or web address] [address] Main: [phone] Fax: [email or web address] Echocardiogram Name: CHRISTOPHER MARRERO MR#: [id number] Study Date: 10/28/2017 Study Time: 10:46 AM Date of : 1955 Age: 62 year(s) Height: 172.7 cm (68 in.) Weight: 93.44 kg (206 lb.) BSA: 2.07 m2 Gender: Male Examination: Limited Echo Indication: New onset chest pain/hx of rcent URI, hx of RCA stent Image Quality: Contrast: Requested by: Keven Castellanos BP: 102 mmHg/65 mmHg Heart Rate: Rhythm: Indication: New onset chest pain/hx of rcent URI, hx of RCA stent Procedure Staff Pony Cylinder Press Operator: Sharonda Reyes [facility] Reading Physician: Keven Castellanos Requesting Provider: Conclusions: Normal global systolic LV function. The ejection fraction is estimated to be 60-65 %. No regional wall motion abnormality. Normal RV function. No pericardial effusion. Measurements: Chambers Valvular Assessment AV/MV Valvular Assessment TV/PV Normal Normal Normal Name Value Range Name Value Range Name Value Range EF Range: 60-65 % AV Vmax: 1.45 m/s (1 m/s-1.7 m/s) AV maxP mmHg ( - ) Continued Measurements: Findings: Left Ventricle: Normal global systolic LV function. The ejection fraction is estimated to be 60-65 %. No regional wall motion abnormality. Right Ventricle: Normal RV function. Left Atrium: The left atrium is normal in size. Right Atrium: The right atrium is normal in size. Mitral Valve: The mitral valve is normal in appearance and function. Patient: CHRISTOPHER MARRERO Study Date: 10/28/2017 Page 1 of 2 10:46 AM Aortic Valve: The aortic valve is normal in appearance. Tricuspid Valve: The tricuspid valve is normal in appearance and function. Trivial tricuspid valve regurgitation. The pulmonary artery pressure is normal. Pericardium: No pericardial effusion. There is pericardial fat. (No Signature Object) Patient: CHRISTOPHER MARRERO Study Date: 10/28/2017 Page 2 of 2 10:46 AM [id number]
[2017-10-28] MEDS ORDERED: MIDAZOLAM 2 MG/2 ML VIAL ONE ×2 (12:02→13:34)
[2017-10-28] MEDS ORDERED: IOPAMIDOL (ISOVUE-370) 150 ML BTL IV ONE ×2 (12:02→13:30)
[2017-10-28] MEDS ORDERED: fentaNYL 100 MCG/2 ML INJ ONE ×2 (12:02→13:47)
[2017-10-28] MEDS ORDERED: LIDOCAINE 1% 300 MG/30 ML SDV ONE (12:02)
[2017-10-28] MEDS ORDERED: FAMOTIDINE 20 MG TAB PO ONE (12:14)
[2017-10-28] MEDS ORDERED: DIAZEPAM 5 MG TAB PO ONE (12:14)
[2017-10-28] MEDS ORDERED: diphenhydrAMINE 25 MG CAP PO ONE ×2 (12:14→12:28)
[2017-10-28] MEDS ORDERED: TEMAZEPAM 15 MG CAP PO PRN (12:14)
[2017-10-28] MEDS ORDERED: FAMOTIDINE 20 MG TAB ONE (12:28)
[2017-10-28] MEDS ORDERED: DIAZEPAM 5 MG TAB ONE (12:29)
--- NOTE | 2017-10-28 12:35 | PDHPUP ---
History & Physical Update H&P update statement: This history and physical update is based on an assessment of the patient which was completed after admission or registration (within 24 hours), but prior to the surgery/procedure. H&P update: H&P reviewed & patient examined, no change in patient's condition since H&P completed
--- NOTE | 2017-10-28 12:35 | PDPROPOC ---
Sedation Plan of Care Sedation Plan of Care: vital signs stable, mental status noted, patient educated of risks, benefits, alternatives, patient can tolerate sedation ASA Classification: ASA 2 Planned drugs: fentanyl, midazolam Mallampati Score: Class 2 Mallampati Reference Image: Patient passed 3-3-2 rule?: Yes
[2017-10-28 13:06] LABS: INR 1.04 (0.83-1.16); PROTIME(PATIENT) 13.8 SEC (12.0-15.0)
[2017-10-28] MEDS ORDERED: PNEUMOCOCCAL 0.5ML VACCINE VIAL IM ONE (13:08)
--- NOTE | 2017-10-28 14:01 | GCON ---
[f rep st] CONSULTATION CARDIOLOGY CONSULTATION. DATE OF CONSULTATION: 10/28/2017 INDICATION FOR CONSULT: Chest pain in the setting of known coronary artery disease. 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 Riddle. The patient was in his usual state of health until yesterday when he developed an acute onset of left-sided substernal sharp chest pain. This pain began around noon and lasted for approximately 5 hours. He describes the pain at that time nonradiating and not associated with nausea, vomiting, diaphoresis, or shortness of breath. He states at approximately 5 p.m., the pain changed to a left-sided pressure that radiated down his left arm. At approximately 7:00 p.m. last night, he took a single sublingual nitroglycerin which resulted in marked improvement in his symptoms. He states his pain was initially at a 7/10 and reduced to 1 or 2/10. In the setting of pain that had been ongoing that resolved with sublingual nitroglycerin, he presented to [facility] for further evaluation. Since his admission, the patient has had 2 further episodes of chest discomfort requiring sublingual nitroglycerin. Both of these episodes have been responsive to sublingual nitroglycerin although his pain has never completely resolved. He states he has had some degree of left-sided chest discomfort since noon yesterday. He denies any complaints of exertional chest pain, chest pressure, shortness of breath, or dyspnea on exertion. No complaints of exertional intolerance or fatigue prior to the onset of his discomfort yesterday. He has no complaints of PND, orthopnea, or lower extremity edema. He has been compliant with his medications including aspirin, and Plavix. Of note, he does have a known history of paroxysmal supraventricular tachycardia for which he was seen at [facility] Emergency Department earlier in February 2017. He received adenosine x1. He has had no further episodes of SVT. He states the symptoms that he began experiencing yesterday were different than those when he developed his SVT. He does describe the symptoms that he has been experiencing are similar to those that he had prior to his percutaneous coronary intervention with Dr. Riddle. Currently, at the time of my exam, he is resting comfortably. He is sitting in a chair. He responds appropriate to questions. His is present at the time of my examination. He does have some mild ongoing left-sided chest discomfort at the time of my examination. Of note, he does state he has had 2 recent upper respiratory infections. He denies any recent fevers, chills, sweats, nausea, vomiting, or diaphoresis. PAST MEDICAL HISTORY: 1. 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 He underwent a single stent with a 2.5 x 38 mm Synergy drug-eluting stent to the anomalous RCA in February 2017. 2. History of isolated episode of SVT, responsive to adenosine x1. 3. Hyperlipidemia. PAST SURGICAL HISTORY: Cholecystectomy. MEDICATIONS ON ADMISSION: 1. Aspirin 81 mg daily. 2. Plavix 75 mg daily. 3. Crestor 20 mg daily. 4. Vitamin D3 2000 units daily. ALLERGIES: To medications include cephalosporins, which resultant hives. SOCIAL HISTORY: He is . He lives with his . He is a lifelong nonsmoker. FAMILY HISTORY: No family history of premature coronary artery disease. PHYSICAL EXAMINATION: VITAL SIGNS: Blood pressure 102/65, heart rate of 74, respiratory rate of 18, oxygen saturation 95% on room air, temperature 36.6. GENERAL: He is awake, alert, oriented, appropriate. No acute distress. NECK: There is no evidence of JVP or carotid bruits. LUNGS: Clear to auscultation bilaterally. CARDIAC: S1, S2. Regular rate and rhythm. No murmurs, rubs, or gallops. ABDOMEN: Soft, nontender, nondistended. There is no pulsatile mass or abdominal bruit. There is no evidence of cyanosis, clubbing or edema. DATA: Lab results: White blood cell count 5.3, hemoglobin of 36.6, hematocrit 39.9, platelet count 219. Sodium 144, potassium 4.3, chloride 107, bicarb 24, BUN 19, creatinine 0.8. Troponin less than 0.012 x 2. ECG demonstrates normal sinus rhythm with normal intervals and normal axis. No evidence of ischemia or infarction. Limited echocardiogram results are pending. SUMMARY: The patient is a pleasant 62-year-old gentleman with known history of coronary artery disease with PCI to the anomalous RCA in February 2017 with 2.5 x 38 mm Synergy drug-eluting stent. He is a patient of [facility]. 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 He does report he had a CTA of the coronary anatomy that was negative for RCA traveling between the pulmonary artery and the aorta. He presents with new onset of left-sided chest discomfort that is responsive to sublingual nitroglycerin. Symptoms are similar to those prior to his PCI last year. PLAN: 1. Will obtain limited echocardiogram to look for possible pericardial effusion and to assess wall motion abnormality. 2. If echocardiogram is unremarkable, would recommend pursuing left heart catheterization in the setting of symptoms that are consistent with unstable anginal symptoms. 45 min spent coordinating care /[id number]/MODL FANTASMA
[2017-10-28] MEDS ORDERED: ATROPINE SULFATE 1 MG/10 ML SYR ONE (14:08)
[2017-10-28] MEDS ORDERED: ATROPINE SULFATE 1 MG/10 ML SYR IVP PRN (14:17)
--- NOTE | 2017-10-28 15:21 | CPIP ---
[f rep st] INVASIVE CARDIAC PROCEDURE DATE OF PROCEDURE: 10/28/2017 PROCEDURE: Coronary angiography. INDICATION: 1. Known coronary artery disease status post stenting of his right coronary artery in 02/2017. 2. Acute coronary syndrome with negative troponin but similar anginal symptoms. ACCESS: Patient was prepped and draped in a sterile fashion. 1% lidocaine was used to anesthetize t he right inguinal region. A 6-Kosovan introducer sheath was placed selectively into the right common femoral artery via modified Seldinger technique. CORONARY ANGIOGRAPHY: A 6-Kosovan JL4 was advanced to the left main coronary artery and images obtain ed. The left main coronary artery trifurcated into an LAD, circumflex coronary artery and ramus berry nary artery. The left main coronary artery appeared free of any significant disease. The left anter ior descending coronary artery had mild diffuse disease throughout. In the proximal vessel, there wa s a discrete 20% stenosis present. The left anterior descending coronary artery gave rise to one pro minent diagonal branch. The diagonal branch had mild diffuse disease throughout. There was no steno sis greater than 20%. The ramus coronary artery was a moderate-sized vessel. The ramus coronary art yue appeared normal. The circumflex coronary artery was nondominant. Circumflex coronary artery gav e rise to 3 OM branches. The circumflex coronary artery had a 20% stenosis in the proximal segment a nd a 20% stenosis in the distal segment. The right coronary artery with an anomalous coronary artery and was known to be stented previously. Initially, a JL 3.5 catheter was used to try to engage the a nomalous right coronary artery. It would not engage the right coronary artery well and was exchanged for a Mayo catheter. The Mayo catheter also did not engage the right coronary artery well and it was exchanged for an AL 3.75. This was able to nonselectively image the right coronary artery, howev er, images were nondiagnostic. A 6-Kosovan JL 3.5 catheter was then advanced with a counter clockwise rotation and was able to engage the right coronary artery well and images were obtained. The right c oronary artery was previously stented in the mid vessel. The previously placed stent was widely robles nt with no evidence of in-stent restenosis. COMPLICATIONS: None. CONCLUSIONS: 1. Patent right coronary artery stent. 2. Mild coronary artery disease without flow limitation. 3. Plan is for medical management. /[id number]/MODL
[2017-10-28] MEDS ORDERED: PNEUMOCOCCAL 0.5ML VACCINE VIAL ONE (15:47)
[2017-10-28 15:54] VITALS: TEMP 97.5; O2SAT 94
[2017-10-28 18:21] VITALS: BP 101/76; PULSE 76; RESP 15
--- NOTE | 2017-10-28 19:11 | PDDCSUM ---
Discharge Summary Discharge Summary: DISCHARGE DIAGNOSES: -acute chest pain episodes at rest, mimicking his previous angina -prior history of right coronary artery stent from February 2017, with anomalous right coronary artery anatomy -mild coronary disease on angiography at this time -rule out for myocardial infarction CONSULTANTS: Chavez Castellanos and Catarino Corcoran cardiology PROCEDURES: Coronary angiography HOSPITAL COURSE SUMMARY: This patient with known coronary disease and stents presented to the hospital after having several episodes at rest in the last 24 hr of pressure in the central and left chest radiating with pain to his left arm, mimicking nearly identically the location and sensation of his pain prior to his stent last year. He was not in heart failure and did not have any arrhythmia. His pain had resolved as he arrived here but he had 2 more episodes at rest here both treated with nitroglycerin and relieved. As this symptom was minute aching so closely his prior angina, it was felt very likely due to unstable angina from for progression of disease or possibly restenoses of his stent which is a 38 mm tube of small diameter. He went coronary angiography today and this showed only mild disease with good patency of his existing stent. There been no complications no other acute symptoms. The patient is felt to be stable for discharge to home. PENDING TEST RESULTS: None MEDICATION CHANGES: None FOLLOW-UP PLAN: With his drug safety associate at [facility]
[2017-10-29] MEDS ORDERED: CHOLECALCIFEROL VIT D3 1,000 UNITS TAB PO SCH (09:00)
--- NOTE | 2017-11-01 10:55 | ASDISCHSUM ---
Discharge Information Plan Status:Home with No Needs Medically Cleared to Leave: Discharge Date:10/28/2017 06:58 PM CM D/C Disposition: ADT D/C Disposition:Home, Routine, Self-Care Projected Discharge Date:10/28/2017 06:58 PM Transportation at D/C: Discharge Delay Reason: Follow-Up Date:10/28/2017 06:58 PM Discharge Slot: Final Diagnosis: Placement Information Patient Contact Information Contact Name:CAROLYN Relationship: Address:[address] City:[place] Alternate Phone: State/Zip Code:[place] [address] Email: Financial Information Financial Class:HMO and PPO Plans Primary Plan Desc:[facility] Primary Plan Number:[id number] Secondary Plan Desc: Secondary Plan Number: Assessment Information [facility] CM Progress Note CM Note CM Note Notes: 10/28/2017 Case Management Note Revewed chart. There are no case management d/c needs identified d/t pt age, marital status and activity levels prior to admission. There are no PT or OT evals ordered at this time. Case Management d/c poc: anticipating independent d/c with follow up as directed. Case Management to follow. Date Signed: 10/28/2017 10:40 AM Electronically Signed By:Radha Peguero RN Intervention Information
== END 2017-10-28 18:58 | disposition home or self-care (01) ==
LOC: F2W 21:32
PROVIDERS: ADMIT Family Medicine; ATTEND Family Medicine
PROC: B2111ZZ Fluoroscopy of Multiple Coronary Arteries using Low Osmolar Contrast (ICD-10-PCS; principal; 2017-10-27)
DX: R07.9 Chest pain, unspecified (principal); I25.10 Atherosclerotic heart disease of native coronary artery without angina pectoris; E78.5 Hyperlipidemia, unspecified; Z95.5 Presence of coronary angioplasty implant and graft; Z79.01 Long term (current) use of anticoagulants
CPT/HCPCS: 71046; 90471; 93005; 93308; 93454; C1887; G0378; G0009; J0461; J1644; J1650; J2250; J3010; Q9967